=== PATIENT | male | born 1950 | race Caucasian/White ===

== ENCOUNTER → 2024-04-14 10:00 | Outpatient (REF) | payer MEDICARE, OTHER, SELFPAY | LOC: RCS 10:00 | PROVIDERS: ATTENDING PHYSICIAN Internal Medicine Cardiovascular Disease; FAMILY PHYSICIAN Family Medicine | DX: I35.0 Nonrheumatic aortic (valve) stenosis (principal) | CPT/HCPCS: 93306 ==

== ENCOUNTER → 2024-05-16 07:03 | Outpatient (REF) | payer MEDICARE, OTHER, SELFPAY ==
[2024-05-16 08:52] LABS: ALT (SGPT) 26 U/L (0-50); AST (SGOT) 25 U/L (17-59); Albumin 4.2 g/dl (3.5-5.0); Alkaline Phosphatase 76 U/L (38-126); Blood Urea Nitrogen 21 mg/dl (9-20); Calcium 9.6 mg/dl (8.4-10.2); Carbon Dioxide 28 mmol/L (22-30); Chloride 105 mmol/L (98-107); Glucose 108 mg/dl (70-99); HDL Cholesterol 88 mg/dl; LDL Cholesterol, Calculated 59 mg/dl; Sodium 139 mmol/L (135-145); Total Bilirubin 0.6 mg/dl (0.2-1.3); Total Cholesterol 158 mg/dl (50-199); Total Protein 6.4 g/dl (6.3-8.2); Triglyceride 58 mg/dl (10-149); Very Low Density Lipoprotein 11 mg/dl (0-30); eGFR > 60.00
[2024-05-16 09:19] LABS: PSA, Total - Screen 1.75 ng/ml (0.0-4.0)
== END ==
LOC: REG 07:03
PROVIDERS: ATTENDING PHYSICIAN Family Medicine
DX: I10 Essential (primary) hypertension (principal); E78.5 Hyperlipidemia, unspecified; R35.0 Frequency of micturition; Z12.5 Encounter for screening for malignant neoplasm of prostate
CPT/HCPCS: 36415; 80053; 80061; G0103

== ENCOUNTER → 2024-06-11 06:45 | Outpatient (REF) | payer MEDICARE, OTHER, SELFPAY ==
[2024-06-11 07:45] LABS: % Basophils 0.4 % (0-2); % Eosinophils 1.6 % (0-6); % Immature Granulocytes 0.2 % (0-0.5); % Lymphocytes 26.4 % (20.5-51.1); % Monocytes 10.3 % (1.7-9.3); % Neutrophils 61.1 % (42.2-75.2); Absolute Eosinophils 0.1 10^3/uL (0-0.7); Absolute Lymphocytes 1.4 10^3/uL (1.2-3.4); Absolute Monocytes 0.5 10^3/uL (0.1-0.6); Absolute Neutrophils 3.2 10^3/uL (1.4-6.5); Hematocrit 39.1 % (39.0-52.0); Hemoglobin 13.3 g/dL (13.0-18.0); Mean Corpuscular Volume 91.1 fL (80.0-94.0); Mean Platelet Volume 10.8 fL (7.4-10.4); Nucleated Red Blood Cells % 0 % (-); Platelet Count 198 10^3/uL (130-400); Red Blood Cell Count 4.29 10^6/uL (4.70-6.10); Red Cell Dist. Width 13.3 % (11.5-14.5); White Blood Cell Count 5.2 10^3/uL (4.8-10.8)
[2024-06-11 08:10] LABS: ALT (SGPT) 25 U/L (0-50); AST (SGOT) 26 U/L (17-59); Alkaline Phosphatase 67 U/L (38-126); Blood Urea Nitrogen 20 mg/dl (9-20); Calcium 9.5 mg/dl (8.4-10.2); Carbon Dioxide 29 mmol/L (22-30); Chloride 108 mmol/L (98-107); Glucose 107 mg/dl (70-99); HDL Cholesterol 82 mg/dl; LDL Cholesterol, Calculated 60 mg/dl; Potassium 4.9 mmol/L (3.5-5.1); Sodium 142 mmol/L (135-145); Total Bilirubin 0.6 mg/dl (0.2-1.3); Total Cholesterol 151 mg/dl (50-199); Total Protein 6.1 g/dl (6.3-8.2); Triglyceride 47 mg/dl (10-149); Very Low Density Lipoprotein 9 mg/dl (0-30); eGFR > 60.00
[2024-06-11 08:52] LABS: PSA, Total - Screen 1.82 ng/ml (0.0-4.0); TSH 3.14 uIU/ml (0.47-4.68)
[2024-06-11 10:53] LABS: Vitamin B12 890 pg/ml (239-931)
[2024-06-11 11:41] LABS: Glycohemoglobin (HgbA1c) 5.8 % (4.0-5.6)
== END ==
LOC: REG 06:45
PROVIDERS: ATTENDING PHYSICIAN Family Medicine; FAMILY PHYSICIAN Internal Medicine Cardiovascular Disease
DX: D64.9 Anemia, unspecified (principal); E03.9 Hypothyroidism, unspecified; I10 Essential (primary) hypertension; E78.5 Hyperlipidemia, unspecified; R53.83 Other fatigue; E11.9 Type 2 diabetes mellitus without complications; R35.0 Frequency of micturition; I25.119 Atherosclerotic heart disease of native coronary artery with unspecified angina pectoris
CPT/HCPCS: 36415; 80053; 80061; 82607; 83036; 84443; 85025; G0103

== ENCOUNTER → 2024-08-06 06:53 | Outpatient (REF) | payer MEDICARE, OTHER, SELFPAY | LOC: RAD 06:53 | PROVIDERS: ATTENDING PHYSICIAN Internal Medicine Cardiovascular Disease; FAMILY PHYSICIAN Family Medicine | DX: I73.9 Peripheral vascular disease, unspecified (principal) | CPT/HCPCS: 93922; 93925 ==

== ENCOUNTER → 2024-11-18 07:45 | Outpatient (REF) | payer MEDICARE, OTHER, SELFPAY ==
[2024-11-18 09:12] LABS: Hematocrit 38.9 % (39.0-52.0); Hemoglobin 13.5 g/dL (13.0-18.0); Mean Corp Hgb Conc. 34.7 g/dL (33.0-37.0); Mean Corpuscular Hgb 30.7 pg (27.0-31.0); Mean Corpuscular Volume 88.4 fL (80.0-94.0); Red Cell Dist. Width 13.4 % (11.5-14.5); White Blood Cell Count 5.2 10^3/uL (4.8-10.8)
[2024-11-18 09:13] LABS: % Basophils 0.4 % (0-2); % Eosinophils 2.9 % (0-6); % Immature Granulocytes 0.2 % (0-0.5); % Lymphocytes 23.2 % (20.5-51.1); % Neutrophils 62.3 % (42.2-75.2); Absolute Eosinophils 0.2 10^3/uL (0-0.7); Absolute Lymphocytes 1.2 10^3/uL (1.2-3.4); Absolute Monocytes 0.6 10^3/uL (0.1-0.6); Absolute Neutrophils 3.2 10^3/uL (1.4-6.5); Nucleated Red Blood Cells % 0 % (-)
[2024-11-18 09:34] LABS: Mean Platelet Volume 10.5 fL (7.4-10.4); Platelet Count 189 10^3/uL (130-400)
[2024-11-18 09:42] LABS: Urine Albumin Negative (Neg - Trace); Urine Bilirubin Negative (Negative); Urine Character Clear (Clear); Urine Color Yellow; Urine Glucose Negative (Negative); Urine Ketone Negative (Negative); Urine Leukocyte Negative (Negative); Urine Nitrite Negative (Negative); Urine Occult Blood Negative (Negative); Urine Specific Gravity 1.015 (<1.030); Urine Urobilinogen Negative (Neg - 1+)
[2024-11-18 09:48] LABS: ALT (SGPT) 39 U/L (0-50); AST (SGOT) 33 U/L (17-59); Albumin 4.4 g/dl (3.5-5.0); Alkaline Phosphatase 66 U/L (38-126); Blood Urea Nitrogen 24 mg/dl (9-20); Calcium 9.3 mg/dl (8.4-10.2); Carbon Dioxide 29 mmol/L (22-30); Chloride 103 mmol/L (98-107); Glucose 107 mg/dl (70-99); HDL Cholesterol 102 mg/dl; LDL Cholesterol, Calculated 57 mg/dl; Potassium 4.3 mmol/L (3.5-5.1); Sodium 138 mmol/L (135-145); Total Bilirubin 0.5 mg/dl (0.2-1.3); Total Cholesterol 170 mg/dl (50-199); Total Protein 6.7 g/dl (6.3-8.2); Triglyceride 55 mg/dl (10-149); Very Low Density Lipoprotein 11 mg/dl (0-30); eGFR > 60.00
[2024-11-18 10:08] LABS: TSH 3.42 uIU/ml (0.47-4.68)
[2024-11-18 10:12] LABS: Ferritin 46.3 ng/ml (17.9-464.0)
[2024-11-18 10:48] LABS: PSA, Total - Diagnostic 2.27 ng/ml (0.0-4.0)
== END ==
LOC: REG 07:45
PROVIDERS: ATTENDING PHYSICIAN Family Medicine
DX: I10 Essential (primary) hypertension (principal); E78.00 Pure hypercholesterolemia, unspecified; E03.9 Hypothyroidism, unspecified; R53.83 Other fatigue; N39.0 Urinary tract infection, site not specified; R35.0 Frequency of micturition; J20.8 Acute bronchitis due to other specified organisms; R79.89 Other specified abnormal findings of blood chemistry
CPT/HCPCS: 36415; 71046; 80053; 80061; 81003; 82728; 84153; 84443; 85025

== ENCOUNTER → 2025-04-21 08:20 | Outpatient (REF) | payer MEDICARE, OTHER, SELFPAY | LOC: RAD 08:20 | PROVIDERS: ATTENDING PHYSICIAN Student in an Organized Health Care Education/Training Program; FAMILY PHYSICIAN Family Medicine | DX: I25.10 Atherosclerotic heart disease of native coronary artery without angina pectoris (principal) | CPT/HCPCS: 93880 ==

== ENCOUNTER 2025-06-01 23:10 | Inpatient (IN) | payer MEDICARE, OTHER, SELFPAY ==
[2025-06-01 18:49] VITALS: BP 164/77
[2025-06-01 19:08] LABS: Hematocrit 37.2 % (39.0-52.0); Hemoglobin 12.9 g/dL (13.0-18.0); Mean Corp Hgb Conc. 34.7 g/dL (33.0-37.0); Mean Corpuscular Volume 89.4 fL (80.0-94.0); Nucleated Red Blood Cells % 0 % (-); Platelet Count 178 10^3/uL (130-400); Red Cell Dist. Width 14.0 % (11.5-14.5)
[2025-06-01 19:29] LABS: ALT (SGPT) 28 U/L (0-50); AST (SGOT) 23 U/L (17-59); Albumin 4.4 g/dl (3.5-5.0); Alkaline Phosphatase 65 U/L (38-126); Blood Urea Nitrogen 23 mg/dl (9-20); Calcium 9.4 mg/dl (8.4-10.2); Carbon Dioxide 25 mmol/L (22-30); Chloride 107 mmol/L (98-107); Glucose 103 mg/dl (70-99); Potassium 3.8 mmol/L (3.5-5.1); Sodium 139 mmol/L (135-145); Total Protein 6.7 g/dl (6.3-8.2); eGFR > 60.00
[2025-06-01 19:32] LABS: Troponin I < 0.012 ng/ml
--- NOTE | 2025-06-01 22:16 | ED.GENMED ---
History of Present Illness
<Haroldo Matthews DO - Last Filed: 06/01/25 22:20>
General
Chief Complaint: Chest Pain
Time Seen by Provider: 06/01/25 21:02
<Linda Shirley MD, Resident - Last Filed: 06/01/25 23:20>
General
Source: patient and spouse
Exam Limitations: none
Nursing documentation reviewed up to this point in time: agreed with
History of Present Illness
History of Present Illness:
Mr. Perry is 75yoM with a significant history of CAD (s/p 9 stents) who is presenting with angina at rest for 2 hours. The pain was retrosternal and radiating to the left neck. The pain was 2/10 and has resolved.
The patient reports the angina feels distinct from her prior episodes, which were during exertion and had associated symptoms, such as dizziness. He took 2 sublingual nitroglycerin tablets, which provided no relief. He thinks his 1.5 glasses of rum
punch contributed to his angina. He denied nausea/vomiting, dyspnea, and diaphoresis.
He had an NH in 2001 and has since had 9 stents. He has had stents in his RCA and is concerned stenosis of his LAD is causing his angina, due to recent imaging demonstrating LAD stenosis and the different nature of this angina compared to previous
episodes.
He received a carotid ultrasound a few weeks ago that demonstrated 50-70% stenosis of his L carotid artery. Vascular surgery is monitoring. He obtained the carotid ultrasound preventatively/asymptomatically due to his brother having a 90% stenosis
and revascularization surgery.
Recent echocardiogram reveals aortic valvular stenosis.
Past History
<Haroldo Matthews DO - Last Filed: 06/01/25 22:20>
Past History
ED Past Medical History: CAD, HTN, Hypercholesterolemia (Hypertriglyceridemia ), NH and Psychiatric (Depression )
ED Past Surgical History: Cardiac (Angioplasty with stenting, Stents X 7) and Other (The patient has been a bone marrow donor )
Social History
Tobacco: Non-smoker
Alcohol: Daily (Rum 2 glasses or mixed drinks)
Personal:
Living: with family
Employment: Employed
Family History
Family History: Diabetes, Hypertension and CAD; Negative Asthma or Cancer
Review of Systems
<Linda Shirley MD, Resident - Last Filed: 06/01/25 23:20>
Review of Systems
All Other Systems: ROS reviewed and negative except as documented in HPI and ROS
Phy Exam
<Linda Shirley MD, Resident - Last Filed: 06/01/25 23:20>
General Physical Exam
General Presentation: well appearing and no apparent distress
General age: appears stated age
General Skin: warm and dry
General Habitus: normal
General Mental: alert
General Hydration: appears well hydrated
Cardiovascular Exam
Cardiovascular Exam: no edema and systolic murmur
Systolic Murmur: 2/6
Pulmonary Exam
Pulmonary Exam: lungs clear and no respiratory distress
Gastrointestinal Exam
Gastrointestinal Exam: normal bowel sounds and non tender
Neurological Exam
Neurological Exam: alert
Skin Exam
Skin Exam: normal color and warm/dry
Psychiatric Exam
Psychiatric Exam: normal mood/affect
Scores
<Linda Shirley MD, Resident - Last Filed: 06/01/25 23:20>
Heart Score for Chest Pain Patients
STEMI patient?: No
History: Highly Suspicious
ECG: Normal (afib)
Age: >/= 65 years
Risk Factors: >/= 3 Risk Factors or History of CAD
Troponin: </= Normal Limit
Heart Score for Chest Pain Patients: 6
Heart Score Risk: 20.3% MACE over next 6 weeks
Course
<Haroldo Matthews, DO - Last Filed: 06/01/25 22:20>
Orders/Labs/Results
Orders:
Orders
06/01/25 18:45
EKG [Electrocardiogram (*1)] Urgent
Reason for Study: Chest Pain
06/01/25 18:46
EKG- Treatment ONCE
06/01/25 19:00
Complete Blood Count/With Diff Urgent
Comprehensive Metabolic Panel Urgent
Troponin I Urgent
06/01/25 22:[address] See Dose Instructions PO NOW STA
Discontinue all Active Warfarin orders?: Yes
Nursing to Place Non Medication Order As Directed
Physician Order: PTT 6 hours after initial start of Heparin infusion
06/01/25 22:31
Heparin 4,000 units IV NOW STA
Nursing to Place Non Medication Order As Directed
Physician Order: PTT 6 hours after initial start of Heparin infusion
06/01/25 22:37
PTT Urgent
Comment: Obtain baseline before beginning heparin infusion if not already collected
06/01/25 22:45
Heparin [id number] Units/250 ml 25,000 units in 250 ml IV PER PROTOCOL
Weight to be used for heparin protocol in kilograms (kg):: 90.1
Protocol:: Cardiac Tx/Acute Coronary
PTT Goal Range to be used:: PTT 73 to 111 seconds
Order type:: Initial
INITIAL Infusion Dose (UNITS/KG/hr) & then follow protocol:: 12 units/kg/hr
Infusion Dose in UNITS/hr & then follow protocol (UNITS/hr):: 1,000
INFUSION RATE in mL/hr & then follow protocol (mL/hr):: 10
PTT less than or equal to 64 seconds:: Increase rate by 200 units/hr (+ 2 mL/hr)
PTT 64.1 to 72.9 seconds:: Increase rate by 100 units/hr (+ 1 mL/hr)
PTT 73 to 111 seconds:: Target Range. No change in rate.
PTT 111.1 to 130.9 seconds:: Decrease rate by 100 units/hr (- 1 mL/hr)
PTT 131 to 199.9 seconds:: HOLD for 1 hr. Then decrease rate by 200 units/hr (- 2 mL/hr)
PTT greater than or equal to 200 seconds:: HOLD for 2 hrs & Notify Provider. Then decrease by 200 units/hr (-
2 mL/hr)
Lab follow-up:: Each change, PTT q6h until 2 consecutive are therapeutic. Then PTT
daily.
06/01/25 23:[address] See Dose Instructions IV DIRECTED
Abnormal Lab Results
06/01/25
19:00
RBC 4.16 L 10^6/uL
(4.70-6.10)
Hgb 12.9 L g/dL
(13.0-18.0)
Hct 37.2 L %
(39.0-52.0)
MPV 10.7 H fL
(7.4-10.4)
Monocytes % 10.3 H %
(1.7-9.3)
BUN 23 H mg/dl
(9-20)
Glucose 103 H mg/dl
(70-99)
06/01/25 19:00
06/01/25 19:00
Vital Signs
Initial and Last Documented VS:
Initial Vital Signs
Temp Pulse Resp BP Pulse Ox
98.3 F 80 18 164/77 97
06/01/25 18:49 06/01/25 18:49 06/01/25 18:49 06/01/25 18:49 06/01/25 18:49
Last Documented Vital Signs
Temp Pulse Resp BP Pulse Ox
98.3 F 67 11 164/77 98
06/01/25 18:49 06/01/25 21:15 06/01/25 21:15 06/01/25 18:49 06/01/25 22:16
<Linda Shirley MD, Resident - Last Filed: 06/01/25 23:20>
Orders/Labs/Results
Orders:
Orders
06/01/25 18:45
EKG [Electrocardiogram (*1)] Urgent
Reason for Study: Chest Pain
06/01/25 18:46
EKG- Treatment ONCE
06/01/25 19:00
Complete Blood Count/With Diff Urgent
Comprehensive Metabolic Panel Urgent
Troponin I Urgent
06/01/25 22:[address] See Dose Instructions PO NOW STA
Discontinue all Active Warfarin orders?: Yes
Nursing to Place Non Medication Order As Directed
Physician Order: PTT 6 hours after initial start of Heparin infusion
06/01/25 22:31
Heparin 4,000 units IV NOW STA
Nursing to Place Non Medication Order As Directed
Physician Order: PTT 6 hours after initial start of Heparin infusion
06/01/25 22:37
PTT Urgent
Comment: Obtain baseline before beginning heparin infusion if not already collected
06/01/25 22:45
Heparin [id number] Units/250 ml 25,000 units in 250 ml IV PER PROTOCOL
Weight to be used for heparin protocol in kilograms (kg):: 90.1
Protocol:: Cardiac Tx/Acute Coronary
PTT Goal Range to be used:: PTT 73 to 111 seconds
Order type:: Initial
INITIAL Infusion Dose (UNITS/KG/hr) & then follow protocol:: 12 units/kg/hr
Infusion Dose in UNITS/hr & then follow protocol (UNITS/hr):: 1,000
INFUSION RATE in mL/hr & then follow protocol (mL/hr):: 10
PTT less than or equal to 64 seconds:: Increase rate by 200 units/hr (+ 2 mL/hr)
PTT 64.1 to 72.9 seconds:: Increase rate by 100 units/hr (+ 1 mL/hr)
PTT 73 to 111 seconds:: Target Range. No change in rate.
PTT 111.1 to 130.9 seconds:: Decrease rate by 100 units/hr (- 1 mL/hr)
PTT 131 to 199.9 seconds:: HOLD for 1 hr. Then decrease rate by 200 units/hr (- 2 mL/hr)
PTT greater than or equal to 200 seconds:: HOLD for 2 hrs & Notify Provider. Then decrease by 200 units/hr (-
2 mL/hr)
Lab follow-up:: Each change, PTT q6h until 2 consecutive are therapeutic. Then PTT
daily.
06/01/25 23:[address] See Dose Instructions IV DIRECTED
Abnormal Lab Results
06/01/25
19:00
RBC 4.16 L 10^6/uL
(4.70-6.10)
Hgb 12.9 L g/dL
(13.0-18.0)
Hct 37.2 L %
(39.0-52.0)
MPV 10.7 H fL
(7.4-10.4)
Monocytes % 10.3 H %
(1.7-9.3)
BUN 23 H mg/dl
(9-20)
Glucose 103 H mg/dl
(70-99)
06/01/25 19:00
06/01/25 19:00
Vital Signs
Initial and Last Documented VS:
Initial Vital Signs
Temp Pulse Resp BP Pulse Ox
98.3 F 80 18 164/77 97
06/01/25 18:49 06/01/25 18:49 06/01/25 18:49 06/01/25 18:49 06/01/25 18:49
Last Documented Vital Signs
Temp Pulse Resp BP Pulse Ox
98.3 F 67 11 164/77 98
06/01/25 18:49 06/01/25 21:15 06/01/25 21:15 06/01/25 18:49 06/01/25 22:16
Banking Pin Adjuster consulted with Physician
Banking Pin Adjuster consulted with physician?: Yes
Name of Physician Consulted: Warren Aquino
<Linda Shirley MD, Resident - Last Filed: 06/01/25 23:20>
MDM/Problems Addressed
MDM/Problems Addressed:
Mr. Perry is a 75yoM with a significant history of CAD presenting with angina at rest and afib.
Cardiac enzymes non-elevated.
EKG demonstrates afib. He is on antiplatelet therapy, but not anticoagulation, so heparin was started.
Admit to inpatient medicine for cardiology consult and trending cardiac enzymes.
Chronic conditions affecting care: HTN and CAD
Acute Exacerbation and/or Progression of Chronic Illness: CAD
<Haroldo Matthews, DO - Last Filed: 06/01/25 22:20>
*Pulse Oximetry
SaO2: 98
Oxygen Mode of Delivery: Room air
<Linda Shirley MD, Resident - Last Filed: 06/01/25 23:20>
*Pulse Oximetry
Patient hypoxic: no
*Critical Care Note
Total Time (30-74mins, 75-104mins- exclusive of procedures): Not Applicable
ED Attending Note
<Haroldo Matthews, DO - Last Filed: 06/01/25 22:20>
ED Attending Note
Patient seen and examined by attending physician: Yes
I performed a history and physical exam of patient and discussed management with resident, I reviewed resident's note and agree with documented findings and plan of care.: Yes
ED Attending Note:
I have seen and evaluated the patient with a [id number] encounter. I have spoken to the resident and involved in the medical history, the physical exam, medical decision making.
Evaluation and management service: agree unless noted differently below.
Results interpretation: agree unless noted differently below.
Focused HPI: 75-year-old male presenting with improving central chest discomfort. Patient states he noted it at rest. Patient was concerned because this is very similar presentation to his prior angina which required cardiac stents. He states he
has 9 cardiac stents. Patient took nitroglycerin with minimal relief. On arrival, patient feeling somewhat better. Patient was concerned because this is the first time he developed this pain at rest
Patient also states has a history of aortic stenosis
Physical exam: Sitting in bed comfortably. Irregular rhythm. Heart murmur noted
Medical Decision Making: Given his significant cardiac history, concern for unstable angina and concern for new onset A-fib, will start heparin and admit
-
Portions of this chart may have been created with voice recognition software.� Occasional wrong word or��sound alike� substitutions may have occurred due to the inherent limitations of voice recognition software.
Discharge Plan
Departure
Patient Disposition: Admit
Date of Disposition: 06/01/25
Time of Disposition: 22:19
Admit to: Telemetry
Presentation/result/management discussed w/ accepting MD/DO: Hospitalist
Discharge Problem:
Unstable angina, New onset atrial flutter
Prescriptions:
No Action
desvenlafaxine succinate [Pristiq] 100 MG tablet extended release 24 hr
200 mg PO DAILY
methylphenidate HCl [Concerta] 36 MG tablet extended release 24hr
36 mg PO DAILY
atorvastatin 40 MG tablet
40 mg PO DAILY
aspirin 81 MG tablet,delayed release (DR/EC)
81 mg PO DAILY
tamsulosin 0.4 MG capsule
0.4 mg PO DAILY
clopidogrel 75 MG tablet
75 mg PO DAILY Qty: 90 3RF
nitroglycerin 0.4 MG tablet, sublingual
0.4 mg sublingual [id number] PRN (Reason: chest pain) Qty: 25 2RF
bupropion HCl [Wellbutrin XL] 300 mg Tablet Extended Release 24 Hr
300 mg PO DAILY
diltiazem HCl 180 mg Capsule,Extended Release 24 Hr
180 mg PO DAILY
losartan 50 mg Tablet
50 mg PO BID
isosorbide mononitrate 60 mg Tablet Extended Release 24 Hr
60 mg PO DAILY
hydrochlorothiazide 12.5 mg Capsule
12.5 mg PO DAILY
omega 8-ypt-whl-fish oil [Fish Oil] 1,200 (144-216) mg Capsule
1 cap PO DAILY
Referrals:
Ashvin Tang DO [Family Provider, Family Practice]
Discharge Date and Time
Print Language: GUATEMALAN
[2025-06-01 22:25] VITALS: BMI 27.7
--- NOTE | 2025-06-01 23:07 | HPS.HSE ---
Addendum entered and electronically signed by Warren Aquino DO 06/01/25 23:32:
Patient seen and examined independently. Agree with findings and plan as set forth by Maria Elena Marvin PA-C.
Patient is a 75y M with PMH significant for ASCVD and multiple prior stents who presents to ED complaining of chest pain. Patient states that he had been feeling very well since his most recent cath. About one week ago he started to have
substernal chest tightness with activity / exertion. Patient notes that he had only been taking his Imdur once daily as he had been feeling well. When his discomfort started, he returned to BID dosing.
This evening, he noted the same chest discomfort while at rest / watching TV. he denies any associated SOB, diaphoresis, nausea, lightheadedness, etc.
Pain lasted for several hours before resolving spontaneously. He is currently resting in the ED without chest pain.
On evaluation in the ED, patient was noted to be in A-Flutter with controlled ventricular response. No prior h/o A-Fib / Flutter.
Ass:
New Atrial Flutter
Chest Pain / Unstable Angina
ASCVD
Benign Hypertension
Moderate Aortic Stenosis
BPH
Depression / ADHD
Plan:
Admit for further evaluation and treatment.
EKG with new A-Flutter with ventricular rate in the 60s and non-specific T wave changes in the lateral / precordial leads.
Initial troponin is undetectable.
Started on IV heparin for A-Flutter.
Follow serial troponin.
Follow for any new / recurrent symptoms.
Cardiology evaluation for additional recommendations.
Continue Imdur BID, ASA, statin, etc.
Continue usual Cardizem dose and follow heart rates.
Original Note:
Family Physician
-
Family Physician: Ashvin Tang
Chief Complaint
-
Chest Tightness
History of Present Illness
Patient is a 75 y/o male with extensive coronary artery disease with multiple stents, hypertension, hyperlipidemia, BPH and Depression who presents with chest tightness. Patient reports chest tightness with activity that has been occurring
intermittently for the past week. Today patient developed chest tightness at rest while sitting watching TV. He reports prior history of angina but states he has never had symptoms at rest. He denies any diaphoresis, dizziness/lightheadedness,
shortness of breath or palpitations.
Medical History
Past Medical History
Past Medical History: Reports Other
Additional Past Medical History:
Coronary Artery Disease s/p Multiple Stents, most recent 2020
Moderate Aortic Stenosis
Essential Hypertension
Hyperlipidemia
BPH
Depression
Restless Leg Syndrome
Past Surgical History: Reports Other
Additional Past Surgical History:
Cardiac Stents x 9
Right Rotator Cuff Repair
Social History
Tobacco: Non-smoker
Alcohol: Occasional
Family History
Family History: Not pertinent
Allergies / Home Medications
Allergies reflects when Allergies were last updated in [employer].
Home Medications with original date entered in [employer]
Allergy/Medication List:
Allergies
Allergy/AdvReac Type Severity Reaction Status Date / Time
pollen extracts Allergy swollen Verified 06/01/25 18:49
sinus,
runny nose
- seasonal
Home Medications
desvenlafaxine succinate 100 mg tablet,extended release 24 hr (Pristiq) 200 mg PO DAILY Mental health 11/30/12
methylphenidate HCl 36 mg tablet,extended release 24 hr (Concerta) 36 mg PO DAILY Mental health 09/02/17
aspirin 81 mg tablet,delayed release 81 mg PO DAILY Blood clot prevention/tx 07/04/20
atorvastatin 40 mg tablet 40 mg PO DAILY High cholesterol 07/04/20
tamsulosin 0.4 mg capsule 0.4 mg PO DAILY Urinary issue 07/04/20
clopidogrel 75 mg tablet 75 mg PO DAILY #90 tabs 07/05/20
nitroglycerin 0.4 mg sublingual tablet 0.4 mg sublingual [id number] PRN chest pain #25 tabs 11/22/21
bupropion HCl 300 mg 24 hr tablet, extended release (Wellbutrin XL) 300 mg PO DAILY 01/25/23
diltiazem HCl 180 mg capsule,24 hr,extended release 180 mg PO DAILY 06/01/25
hydrochlorothiazide 12.5 mg capsule 12.5 mg PO DAILY 06/01/25
isosorbide mononitrate 60 mg tablet,extended release 24 hr 60 mg PO DAILY 06/01/25
losartan 50 mg tablet 50 mg PO BID 06/01/25
omega 2-uwl-tlw-fish oil 1,200 mg (144 mg-216 mg) capsule (Fish Oil) 1 cap PO DAILY 06/01/25
Review of Systems
-
History Source: Patient
A 12 point ROS was completed and negative except as noted: Yes
Constitutional: Denies Fever or Chills
Respiratory: Denies Cough or Trouble Breathing
Cardiac: Reports Chest Pain; Denies Palpitations
Abdomen/GI: Denies Abdominal Pain, Nausea, Vomiting, Diarrhea or Constipated
Physical Exam
Vital Signs
Vital Signs
Temp Pulse Resp BP Pulse Ox
98.3 F 67 11 164/77 98
06/01/25 18:49 06/01/25 21:15 06/01/25 21:15 06/01/25 18:49 06/01/25 22:16
Physical Exam
General: Comfortable and Conversant
HEENT: Anicteric and Moist mucous membranes
Respiratory: Clear and Non Labored Respirations
Cardiac: S1/S2, Regular Rhythm and Murmur (II/ Systolic Murmur)
GI: Soft, Non Tender and Non Distended
Rectal: Deferred by Provider
Musculoskeletal: No Clubbing, No Cyanosis and No Edema
Skin: Warm and Dry
Neuro: Awake, Alert, Oriented and Nonfocal/grossly intact
Psych: Calm
Laboratory Results
-
06/01/25 19:00
06/01/25 19:00
Laboratory Results
Total Bilirubin 0.3 mg/dl (0.2-1.3) 06/01/25 19:00
AST 23 U/L (17-59) 06/01/25 19:00
ALT 28 U/L (0-50) 06/01/25 19:00
Alkaline Phosphatase 65 U/L (38-126) 06/01/25 19:00
Troponin I < 0.012 ng/ml 06/01/25 19:00
ECG: Atrial flutter with variable AV block at 88 bpm
Data Reviewed
-
Medical Tests (Nuc Med, Echo, EKG etc): Other (ECG)
Lab Data: Labs Reviewed by me
Impression/Plan
-
Unstable Angina
-Admit to Telemetry
-Consult Cardiology
-Initial troponin undetectable - Continue to trend
-Continue heparin drip
-Continue aspirin - Hold Plavix
-Patient report he decreased his Imdur from twice a day to daily - Will resume twice a day dosing
-NPO after midnight for possible cardiac cath
Newly Diagnosed Atrial Flutter
-Continue Cardizem for rate control
-Continue heparin drip for anticoagulation
Moderate Aortic Stenosis
-Monitor Daily Weights
Essential Hypertension
-Continue Cardizem and Losartan
-Hold HCTZ
Hyperlipidemia
-Continue atorvastatin
BPH
-Continue Flomax
Depression
-Continue Wellbutrin and Pristiq
DVT proph: Heparin Drip
Code Status: Full Code
[2025-06-01 23:10] LABS: APTT 22.5 Sec (23.4-35.0)
[2025-06-01] MEDS: HEPARIN 4000 UNITS IV (23:23)
[2025-06-01] MEDS: HEPARIN 25000 UNITS/250 ML IV (23:24)
[2025-06-02] VITALS (9 sets, daily range): BP systolic 102–133; BP diastolic 44–74; BMI 28.6
[2025-06-02 00:48] LABS: Troponin I 0.045 ng/ml
--- NOTE | 2025-06-02 03:51 | PTCARENOTE ---
Around 0015, pt admitted to 338-2. Pt walked from stretcher to bed w/ steady gait. Pt aaox3, VSS, and no c/o pain. Heparin gtt running at 10ml/hr. Pt oriented to room, call hart within reach, and plan of care ongoing.
[2025-06-02 05:16] LABS: Hematocrit 37.8 % (39.0-52.0); Hemoglobin 13.0 g/dL (13.0-18.0); Mean Corp Hgb Conc. 34.4 g/dL (33.0-37.0); Mean Corpuscular Volume 89.8 fL (80.0-94.0); Platelet Count 160 10^3/uL (130-400); Red Cell Dist. Width 14.0 % (11.5-14.5)
[2025-06-02 05:25] LABS: INR 0.96; PT 13.1 Sec (11.4-14.6)
[2025-06-02 05:27] LABS: APTT 54.3 Sec (23.4-35.0)
[2025-06-02 05:55] LABS: Blood Urea Nitrogen 21 mg/dl (9-20); Calcium 8.6 mg/dl (8.4-10.2); Carbon Dioxide 26 mmol/L (22-30); Chloride 108 mmol/L (98-107); Estimated Creatinine Clearance 71 ml/min; Glucose 104 mg/dl (70-99); HDL Cholesterol 78 mg/dl; LDL Cholesterol, Calculated 60 mg/dl; Magnesium 2.2 mg/dl (1.6-2.3); Potassium 3.9 mmol/L (3.5-5.1); Sodium 139 mmol/L (135-145); Very Low Density Lipoprotein 11 mg/dl (0-30); eGFR > 60.00
[2025-06-02 06:12] LABS: Troponin I 0.041 ng/ml
[2025-06-02] MEDS: WELLBUTRIN XL (24 hour extended release) 300 MG PO (07:47)
[2025-06-02] MEDS: FLOMAX 0.4 MG PO (07:47)
[2025-06-02] MEDS: ASPIR LOW (ENTERIC COATED) 81 MG PO (07:47)
[2025-06-02] MEDS: CARDIZEM CD 180 MG PO (07:47)
[2025-06-02] MEDS: COZAAR 50 MG PO ×2 (07:47→20:40)
[2025-06-02] MEDS: LIPITOR 40 MG PO (07:48)
[2025-06-02] MEDS: IMDUR (EXTENDED RELEASE) 60 MG PO ×2 (07:48→20:40)
--- NOTE | 2025-06-02 08:41 | CON.CAR ---
Addendum entered and electronically signed by Gulshan Viveros MD 06/02/25 12:21:
Patient seen and examined in collaboration with PGY 2 family development extension specialist; agree with below.
- 75-year-old male with known extensive CAD with 9 stents and aortic stenosis presenting with chest pain; troponin slightly elevated, consistent with an NSTEMI.
- Patient also found to have new onset paroxysmal atrial flutter.
- Focus cardiovascular examination: Irregular rate and rhythm, 3/6 systolic murmur; lungs CTA bilaterally; no edema.
- Assessment/plan:
- CAD/NSTEMI: Case discussed with Interventional Cardiology; patient will undergo cardiac catheterization today to help determine clinical plan (possible AVR/CABG).
- Continue heparin drip.
- Increase atorvastatin.
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
Original Note:
Documented by User: Josey Mott MD, Resident 06/02/25 11:35
Consultation
Consultation Request
Date/Time Consultation Requested: 06/02/2025 00:25
Date/Time Consultation Performed: 06/02/2025 08:30
Requesting Provider: Maria Elena Marvin
Performing Provider: Dr. Mookie Mcmullen
Reason for Consultation: A. flutter
Medical History
-
Chief Complaint: Chest pain, a. flutter
History of Present Illness:
75-year-old male with past medical history of CAD status post 9 stents presented (last one 2020) on plavix and aspirin, moderate aortic stenosis, essential hypertension, hyperlipidemia, BPH, depression, restless leg, PVD, peripheral neuropathy and
irritable bowel syndrome presents to the ED with chest tightness. The patient has had anginal symptoms since his first heart attack in 2000 and is familiar with the symptoms. He was placed on Imdur 60 mg twice daily by his engineering production worker for anginal
symptoms and in the past year he has not had any events until the last few days. Because he had not had any events, he decided to take his Imdur once a day. When he started having chest pain, he decided to take the Imdur twice daily as prescribed
which did not seem to help. Last night, he had chest pain while at rest watching TV. He took 2 nitroglycerin tablets which did not help at which point he came to the ED. Stated pain was 1-2 out of 10, nonradiating, not associated with any
shortness of breath, sweating, dizziness.
In the ED, blood pressure 164/77, heart rate 67, troponin 0.012 which later bumped to 0.045 down trended to 0.041, Cr 0.9. EKG revealed a.flutter with controlled ventricular response. He has no prior history of a.fib/flutter. Last echo 04/14/2024
LVEF 70 to 75%, no regional wall abnormalities, mild LVH, moderate aortic stenosis, mild AR, mild MR. He was started on a heparin ggt, trended troponins, NPO for potential cath. Plavix held.
Of note, patient had prior cardiac cath with prior engineering production worker Dr. Barcenas for anginal symptoms on 01/21/2023 which revealed:
1: Moderate aortic stenosis with mean gradient 22 mmHg
2: Normal overall left ventricular function with EF 58%
3. CAD as described. There is diffuse proximal and mid LAD disease which is not associated with significant angiographic stenosis but is FloWire positive.
4. Based on the angiogram, there is no appropriate target for PCI. We will add Imdur 30 mg daily to his regimen. With history of major depression, we will attempt to avoid a beta-shannon; however, if necessary for angina suppression we will give
a trial of beta-blockade depending on how he does with Imdur. He is a appropriate candidate for CABG if symptoms are not controlled medically.
Past Medical History
Past Medical History: CAD (s/p 9 stents), HTN, Hypercholesterolemia, Valvular Disease (Moderate aortic stenosis) and Other (BPH, depression, restless leg, PVD, peripheral neuropathy, irritable bowel syndrome)
Past Surgical History: Other (Right and left rotator cuff surgery, cardiac stent x 9)
Social History
Tobacco: Non-Smoker
Alcohol: Daily (Glass of wine or other alcoholic beverage nightly)
Drug: None
Personal:
Living: With Family
Family History
Family History: Other (Father CHF, 4 paternal uncles of CHF or [place], 2 brothers both had cardiac bypass. Mother diabetes )
Allergies / Home Medications
Allergy/AdvReac Type Severity Reaction Status Date / Time
pollen extracts Allergy swollen Verified 06/01/25 18:49
sinus,
runny nose
- seasonal
�Medication �Instructions �Recorded �Confirmed �Type
desvenlafaxine succinate 100 mg 200 mg PO DAILY Mental health 11/30/12 06/01/25 History
tablet,extended release 24 hr
(Pristiq)
methylphenidate HCl 36 mg 36 mg PO DAILY Mental health 09/02/17 06/01/25 History
tablet,extended release 24 hr
(Concerta)
aspirin 81 mg tablet,delayed 81 mg PO DAILY Blood clot 07/04/20 06/01/25 History
release prevention/tx
atorvastatin 40 mg tablet 40 mg PO DAILY High cholesterol 07/04/20 06/01/25 History
tamsulosin 0.4 mg capsule 0.4 mg PO DAILY Urinary issue 07/04/20 06/01/25 History
clopidogrel 75 mg tablet 75 mg PO DAILY #90 tabs 07/05/20 06/01/25 Rx
nitroglycerin 0.4 mg sublingual 0.4 mg sublingual [id number] PRN 11/22/21 06/01/25 Rx
tablet chest pain #25 tabs
bupropion HCl 300 mg 24 hr tablet, 300 mg PO DAILY 01/25/23 06/01/25 History
extended release (Wellbutrin XL)
diltiazem HCl 180 mg capsule,24 180 mg PO DAILY 06/01/25 06/01/25 History
hr,extended release
hydrochlorothiazide 12.5 mg capsule 12.5 mg PO DAILY 06/01/25 06/01/25 History
isosorbide mononitrate 60 mg 60 mg PO DAILY 06/01/25 06/01/25 History
tablet,extended release 24 hr
losartan 50 mg tablet 50 mg PO BID 06/01/25 06/01/25 History
omega 3-csv-pse-fish oil 1,200 mg 1 cap PO DAILY 06/01/25 06/01/25 History
(144 mg-216 mg) capsule (Fish Oil)
Review of Systems
-
History Source: Patient
Constitutional: No Symptoms
EENT: No Symptoms
Respiratory: No Symptoms
Cardiac: No Symptoms
Abdomen/GI: No Symptoms
: No Symptoms
Neurological: No Symptoms
Physical Exam
Vital Signs
Temp Pulse Resp BP Pulse Ox
97.9 F 66 14 124/67 99
06/02/25 07:48 06/02/25 07:48 06/02/25 07:48 06/02/25 07:48 06/02/25 07:59
Lab Results
06/02/25 05:04
06/02/25 05:04
Troponin I 0.041 ng/ml H* 06/02/25 05:04
Physical Exam
General: No Apparent Distress and Comfortable
Respiratory: Clear
Cardiac: S1/S2 and Regular Rhythm
GI: Soft, Non Tender, Non Distended and Normal Bowel Sounds
Musculoskeletal: No Cyanosis and No Edema
Skin: Warm and Dry
Neuro: AO x 3
Psych: Calm
Impression / Plan
-
75-year-old male with past medical history of CAD status post 9 stents presented (last one 2020) on plavix and aspirin, moderate aortic stenosis, essential hypertension, hyperlipidemia, BPH, depression, restless leg, PVD, peripheral neuropathy and
irritable bowel syndrome presents with NSTEMI and new onset atrial flutter. Currently asymptomatic.
Primary Air Pollution Compliance Inspector Dr. Barnes
NSTEMI
CAD status post 9 stents
--Anginal symptoms at rest with trop peak 0.045
--EKG a.flutter non-specific T wave abnormalities
--Echo 06/02/25 LVEF 65-70% with possible mid-anteroseptal/inferoseptal hypokinesis. Mod-severe . Mild to mod AR.
--Prior PCI with Dr. Barcenas 01/25/2023 per below
--Discussed with Dr. Barnes and plan for cardiac cath today - Discussed potential future surgical interventions which include TAVR and CABG vs PCI
--Keep NPO
--Cont heparin ggt
--Cont ASA - cont to hold plavix for now
--Cont Imdur 60 BID
Moderate to severe aortic stenosis
--Moderate to severe aortic stenosis; peak/mean gradients 42/27 mmHg, calculated CORRINA 0.8 cm2.
--Discussed potential surgical repair options with patient - eval further after cath
A.flutter
--CV2 score 4 for age, HTN and CAD
--Currently on heparin ggt
--Will require nursing home anticoagulation. Likely plavix and eliquis. Discuss with pt further after cath.
--Appears rate controlled - continue home diltiazem 180qd
Prolonged QTc
--QTc 474
--Monitor and avoid QT prolonging medications
HLD
--LDL 60 - goal <55
--Increase atorva 40 to 80
HTN
--Cont home diltiazem, losartan 50 BID
-HCTZ held in ED. BP stable so can continue to hold.
PVD
--Sees Dr. Devries
--Leg claudication
--04/21/25 L carotid 50-69% and R <50%
--Cont ASA, plavix on hold
Depression
--Pt concerned about missing his desvenlafaxine dose as not on formulary and gets nightmares without it
-- plans to bring it in and he can take it post-cath
--Methylphenidate also for depression
DVT Heparin ggt
Full Code
NPO
Cardiac Cath 01/25/2023 CONCLUSIONS
1: Moderate aortic stenosis with mean gradient 22 mmHg
2: Normal overall left ventricular function with EF 58%
3. CAD as described. There is diffuse proximal and mid LAD disease which is not associated with significant angiographic stenosis but is FloWire positive.
4. Based on the angiogram, there is no appropriate target for PCI. We will add Imdur 30 mg daily to his regimen. With history of major depression, we will attempt to avoid a beta-shannon; however, if necessary for angina suppression we will give
a trial of beta-blockade depending on how he does with Imdur. He is a appropriate candidate for CABG if symptoms are not controlled medically.

Documented by User: Gulshan Viveros MD 06/02/25 12:18
Physical Exam
Physical Exam
Cardiac: Murmur (3/6 systolic RUSB)
Impression / Plan
-
75-year-old male with past medical history of CAD status post 9 stents presented (last one 2020) on plavix and aspirin, moderate aortic stenosis, essential hypertension, hyperlipidemia, BPH, depression, restless leg, PVD, peripheral neuropathy and
irritable bowel syndrome presents with NSTEMI and new onset atrial flutter. Currently asymptomatic.
Primary Air Pollution Compliance Inspector Dr. Barnes
NSTEMI/known CAD status-post 9 stents
--Anginal symptoms at rest with trop peak 0.045
--EKG a.flutter non-specific T wave abnormalities
--Echo 06/02/25 LVEF 65-70% with possible mid-anteroseptal/inferoseptal hypokinesis. Mod-severe . Mild to mod AR.
--Prior PCI with Dr. Barcenas 01/25/2023 per below
--Discussed with Dr. Barnes and plan for cardiac cath today - Discussed potential future surgical interventions which include TAVR and CABG vs PCI
--Keep NPO
--Cont heparin gtt
--Cont ASA - cont to hold plavix for now
--Cont Imdur 60 BID
Moderate to severe aortic stenosis
--Moderate to severe aortic stenosis--progressive; peak/mean gradients 42/27 mmHg, calculated CORRINA 0.8 cm2.
--Discussed potential surgical repair options with patient - eval further after cath
New onset A.flutter
--Denies palpitations
--CV2 score 4 for age, HTN and CAD
--Currently on heparin gtt
--Will require termite control representative anticoagulation. Likely eliquis. Discuss with pt further after cath.
--Appears rate controlled - continue home diltiazem 180 daily
Prolonged QTc
--QTc 474
--Monitor and avoid QT prolonging medications
HLD
--LDL 60 - goal <55
--Increase atorva 40 to 80
HTN
--Cont home diltiazem, losartan 50 BID
--HCTZ held in ED. BP stable so can continue to hold.
PVD
--Sees Dr. Devries
--Leg claudication
--04/21/25 L carotid 50-69% and R <50%
--Cont ASA; plavix on hold
Depression
--Pt concerned about missing his desvenlafaxine dose as not on formulary and gets nightmares without it
-- plans to bring it in and he can take it post-cath
--Methylphenidate also for depression
DVT Heparin gtt
Full Code
NPO
Cardiac Cath 01/25/2023 CONCLUSIONS
1: Moderate aortic stenosis with mean gradient 22 mmHg
2: Normal overall left ventricular function with EF 58%
3. CAD as described. There is diffuse proximal and mid LAD disease which is not associated with significant angiographic stenosis but is FloWire positive.
4. Based on the angiogram, there is no appropriate target for PCI. We will add Imdur 30 mg daily to his regimen. With history of major depression, we will attempt to avoid a beta-shannon; however, if necessary for angina suppression we will give
a trial of beta-blockade depending on how he does with Imdur. He is a appropriate candidate for CABG if symptoms are not controlled medically.
Data Reviewed
-
EKG: Report Reviewed by me (Aflutter at 88 bpm)
Medical Tests (Nuc Med, Echo etc): Image Personally Visualized and interpreted (06/02/25: EF 65-70%, moderate to severe ) and Discussed with Patient
Labs: Labs Reviewed by me
[2025-06-02 11:47] LABS: APTT 70.2 Sec (23.4-35.0)
[2025-06-02 13:43] LABS: ACT-LR - POC 331 Seconds (116-155)
--- NOTE | 2025-06-02 14:41 | W.PN.HOSP.TC ---
Today's Communication/Plan
-
Discharge tomorrow if cleared by cardiology
Assessment / Plan
Assessment / Plan
HPI: 75 y/o male with extensive coronary artery disease with multiple stents, hypertension, hyperlipidemia, BPH and Depression who presents with chest tightness. Patient reports chest tightness with activity that has been occurring intermittently
for the past week. Today patient developed chest tightness at rest while sitting watching TV. He reports prior history of angina but states he has never had symptoms at rest. He denies any diaphoresis, dizziness/lightheadedness, shortness of breath
or palpitations.
Unstable Angina
- Appreciate cardiology input, status post cardiac catheterization 06/02 showing multivessel CAD, and moderate aortic stenosis
- Cardiology recommends outpatient follow-up with CT surgery for CABG/AVR
- Change IV heparin drip to Eliquis, continue Plavix, discontinue aspirin
- Atorvastatin increased to 80 mg at bedtime, continue Imdur twice a day
- Discharge tomorrow if cleared by cardiology
Newly Diagnosed Atrial Flutter
-Continue Cardizem for rate control
-Change IV heparin drip to Eliquis
Moderate Aortic Stenosis
-Outpatient follow-up with CT surgery for CABG/AVR
Essential Hypertension
-Continue Cardizem and Losartan
-Hold HCTZ
Hyperlipidemia
-Atorvastatin increased by cardiology to 80 mg at bedtime
BPH
-Continue Flomax
Depression
-Continue Wellbutrin and Pristiq
DVT proph: Eliquis
Code Status: Full Code
Total time spent to see the patient on the floor, examine the patient, review data and lab results, discuss treatment plan with patient, nursing staff around 39 minutes.
Physical Exam
General: No acute distress
HEENT: Normocephalic, Atraumatic, EOMI, MMM
Respiratory: Clear to Auscultation bilaterally
Cardiac: Normal S1/S2, Regular Rate and Rhythm, +murmur
GI: Soft, Nontender, Nondistended, Normal Bowel Sounds
Extremities: No Clubbing, Cyanosis, or Edema
Neuro: Nonfocal/Grossly Intact
Anticipated Discharge: Within 24 hours
Subjective/Interval History
-
Date of Service: June 02, 2025
Patient seen and examined in the morning prior to his cardiac catheterization. He did not have any recurrence of his chest pain. Denies palpitations, denies dyspnea with activity. No fever, no vomiting.
Objective Data
-
Labs:
Laboratory Results
06/01/25 06/02/25 06/02/25
22:37 05:04 11:35
WBC 5.5
Hgb 13.0
Hct 37.8 L
Plt Count 160
PT 13.1
INR 0.96
APTT 22.5 L 54.3 H Pending
Sodium 139
Potassium 3.9
Chloride 108 H
Carbon Dioxide 26
BUN 21 H
Creatinine 0.9
Glucose 104 H
Calcium 8.6
Vital Signs:
Vital Signs
Temp Pulse Resp BP Pulse Ox
97.9 F 66 14 124/67 99
06/02/25 07:48 06/02/25 07:48 06/02/25 07:48 06/02/25 07:48 06/02/25 07:59
--- NOTE | 2025-06-02 16:41 | W.PN.UPDATE ---
Update Note
Progress Note Update
Brief post cath update note, full procedure note to follow.
Right and left heart cath performed via right radial artery and right femoral vein access with following findings:
1) stable disease in the RCA and LCx with ostial LAD stenosis noted which was positive by IVUS criteria (4.5 mm2 MLA). There was also progression of a mid-LAD stenosis to 60-70% (40% on priot angiography). Neither of these lesions are clear
explanations for his NSTEMI, revascularization deferred as patient may ultimately benefit from CABG/AVR in near future.
2) Valve interrogation consistent with moderate
Plan:
1) resume heparin tonight, will likely transition to OAC tomorrow
2) CT surgery consult for consideration of CABG/AVR, likely as outpatient given normal EF and resolved symtoms
--- NOTE | 2025-06-02 16:58 | CM ---
Alert awake oriented patient who
lives with his Mary Kate who lives in a 2 story home with 0 step to enter and 13 steps to bed and bathroom. He is independent in driving and in all activities of daily living.He was offered VN he declined need.Pt given Eliquis coupon as requested by
.Pt will be discharge and set up for cardiac surgery.
No VN hx / No SNF history
Pharmacy [facility]
PCP DR Tang
PLAN Home Declined VN
[2025-06-02] MEDS: LIPITOR 80 MG PO (17:04)
[2025-06-02] MEDS: ELIQUIS 5 MG PO (20:40)
[2025-06-03 02:58] VITALS: BP 104/58
[2025-06-03 05:47] LABS: Hematocrit 34.3 % (39.0-52.0); Hemoglobin 11.6 g/dL (13.0-18.0); Mean Corp Hgb Conc. 33.8 g/dL (33.0-37.0); Mean Corpuscular Volume 91.0 fL (80.0-94.0); Platelet Count 149 10^3/uL (130-400); Red Cell Dist. Width 14.0 % (11.5-14.5)
[2025-06-03 06:00] VITALS: BMI 28.8
[2025-06-03 06:16] LABS: Blood Urea Nitrogen 23 mg/dl (9-20); Calcium 9.0 mg/dl (8.4-10.2); Carbon Dioxide 27 mmol/L (22-30); Chloride 108 mmol/L (98-107); Estimated Creatinine Clearance 80 ml/min; Glucose 105 mg/dl (70-99); Potassium 4.3 mmol/L (3.5-5.1); Sodium 137 mmol/L (135-145); eGFR > 60.00
[2025-06-03 07:44] VITALS: BP 124/62
[2025-06-03] MEDS: CARDIZEM CD 180 MG PO (08:04)
[2025-06-03] MEDS: WELLBUTRIN XL (24 hour extended release) 300 MG PO (08:05)
[2025-06-03] MEDS: FLOMAX 0.4 MG PO (08:05)
[2025-06-03] MEDS: IMDUR (EXTENDED RELEASE) 60 MG PO (08:05)
[2025-06-03] MEDS: PLAVIX 75 MG PO (08:05)
[2025-06-03] MEDS: COZAAR 50 MG PO (08:05)
[2025-06-03] MEDS: ELIQUIS 5 MG PO (08:05)
[2025-06-03] MEDS: NON-FORMULARY ITEM PO ×2 (08:44→09:48)
[2025-06-03] MEDS: NON-FORMULARY ITEM 200 MG PO (08:51)
--- NOTE | 2025-06-03 09:14 | W.PN.HOSP.TC ---
Today's Communication/Plan
-
Discharge today
Assessment / Plan
Assessment / Plan
HPI: 75 y/o male with extensive coronary artery disease with multiple stents, hypertension, hyperlipidemia, BPH and Depression who presents with chest tightness. Patient reports chest tightness with activity that has been occurring intermittently
for the past week. Today patient developed chest tightness at rest while sitting watching TV. He reports prior history of angina but states he has never had symptoms at rest. He denies any diaphoresis, dizziness/lightheadedness, shortness of breath
or palpitations.
Unstable Angina
- Appreciate cardiology input, status post cardiac catheterization 06/02 showing multivessel CAD, and moderate aortic stenosis
- Cardiology recommends outpatient follow-up with CT surgery for CABG/AVR
- Status post IV heparin drip, started on Eliquis, continue Plavix, discontinue aspirin
- Atorvastatin increased to 80 mg at bedtime, continue Imdur twice a day
- Medically stable for discharge today, follow-up with CT surgery and cardiology in the office as scheduled, and his primary care provider in 1 week
Newly Diagnosed Atrial Flutter
-Continue Cardizem for rate control
- Started on Eliquis
Moderate Aortic Stenosis
-Outpatient follow-up with CT surgery for CABG/AVR
Essential Hypertension
-Continue Cardizem and Losartan
-Resume HCTZ
Hyperlipidemia
-Atorvastatin increased by cardiology to 80 mg at bedtime
BPH
-Continue Flomax
Depression
-Continue Wellbutrin and Pristiq
DVT proph: Eliquis
Code Status: Full Code
Physical Exam
General: No acute distress
HEENT: Normocephalic, Atraumatic, EOMI, MMM
Respiratory: Clear to Auscultation bilaterally
Cardiac: Normal S1/S2, Regular Rate and Rhythm, +murmur
GI: Soft, Nontender, Nondistended, Normal Bowel Sounds
Extremities: No Clubbing, Cyanosis, or Edema
Neuro: Nonfocal/Grossly Intact
Anticipated Discharge: Today
Subjective/Interval History
-
Date of Service: June 03, 2025
No recurrence of chest pain. No shortness of breath. No fever, no vomiting.
Objective Data
-
Labs:
Laboratory Results
06/03/25
05:17
WBC 5.7
Hgb 11.6 L
Hct 34.3 L
Plt Count 149
Sodium 137
Potassium 4.3
Chloride 108 H
Carbon Dioxide 27
BUN 23 H
Creatinine 0.8
Glucose 105 H
Calcium 9.0
Vital Signs:
Vital Signs
Temp Pulse Resp BP Pulse Ox
98.3 F 58 14 124/62 97
06/03/25 07:44 06/03/25 08:04 06/03/25 07:44 06/03/25 08:04 06/03/25 07:44
I&O
06/02/25 06/03/25 06/04/25
06:59 06:59 06:59
Intake Total 1440 / 1440
Balance 1440 / 1440
--- NOTE | 2025-06-03 09:49 | PTCARENOTE ---
pt had prescription bottle with assorted pills on his blanket, including Pristiq 200mg that was not on MAR, but on patient home med list. Explained to pt that he cannot take home meds without RN knowing, and med was sent to pharmacy for barcode.
Received from pharm and administered.
--- NOTE | 2025-06-03 11:18 | W.DCSUMMARY ---
Discharge Summary
Discharge Data
Date of Admission: 06/01/25
Date of Discharge: 06/03/25
-
Pending Results: No
Hospital Course
Discharge diagnosis:
Non-ST elevation myocardial infarction
Unstable angina
Newly diagnosed atrial flutter
Moderate aortic stenosis
Essential hypertension
Hyperlipidemia
Benign prostatic hypertrophy
Depression
Consults: Cardiology
Procedures:
06/02/2025 cardiac catheterization
CONCLUSIONS
1. Mildly elevated biventricular filling pressures, normal pulmonary artery pressure, and normal cardiac output.
2. Valve study with demonstration of moderate to severe aortic valve stenosis, consistent with echocardiography.
3. Severe coronary artery disease as described with no clear culprit lesion to explain the patient's presentation but demonstration by IVUS and angiography of focally significant ostial LAD stenosis, angiographic progression of focal mid LAD
stenosis, and stable moderate proximal RCA ISR. On previous angiography, the LAD had been interrogated by FloWire with demonstration of a diffuse pattern of positivity in the proximal vessel with focal residual positivity at the ostium. In the
present study, IVUS of the ostial LAD was performed. There is noted to be significant concertina effect produced by wiring of the LAD. This may explain the previous finding of diffuse positivity in the proximal LAD despite normal angiographic
appearance. The residual positivity found on the prior study (0.93) is likely real and a result of true ostial disease which has further progressed and this time was demonstrated by IVUS to be of borderline severity (MLA ~4.0 mm2).
RECOMMENDATIONS: Overall, this is a patient presenting with ACS, without obvious culprit lesion but coronary artery disease that is of borderline severity by angiographic and IVUS criteria in difficult to stent locations, including the ostial LAD in
setting of a short left main with large LCx system. There is also moderate ISR in the RCA which is likely to progress over time and will be difficult to treat further given multiple overlapping stents. Finally there is moderate to severe aortic
valve stenosis which has been slowly progressive. In this setting, I think the best course of action is to proceed with AVR/CABG with grafts to both the LAD and RCA. The patient has been discussed with Dr. Alex Carbajal who will be seeing him in the
near future in the outpatient setting.
Hospital course:
75-year-old male with a past medical history of CAD status post stent placement, BPH, hypertension, hyperlipidemia, and aortic stenosis presented with chest pain. He was found to be in new onset atrial flutter, and also have a non-ST elevation
myocardial infarction.
He was treated with an IV heparin drip. He was seen in conjunction with cardiology, and underwent cardiac catheterization on 06/02/2025, which showed multivessel coronary artery disease, and worsening aortic stenosis. Cardiology recommends he be
discharged on Eliquis 5 mg twice a day, Plavix 75 mg daily, and increased dose of atorvastatin 40 mg at bedtime. His aspirin is discontinued. He is referred to CT surgery outpatient for evaluation for CABG and aortic valve repair. He did not have
any recurrence of chest pain. He is medically stable and cleared by cardiology for discharge. He needs to follow-up with his PCP in 1 week, cardiology, and CT surgery as directed.
Disposition: Home self-care
Discharge planning: Required 37 minutes
Discharge Plan
-
Patient Disposition: Home (Routine Discharge)
Discharge Diagnosis/Procedures: Non-ST elevation myocardial infarction, aortic stenosis, new onset atrial flutter, coronary artery disease, status post cardiac catheterization
Condition: Fair
Diet: Low Fat and Low Cholesterol
Activity: No strenuous activity
Additional Activity: no heavy lifting >10lbs, no strenuous activity, no sexual activity until after cardiac surgery. If you get chest pain, please call 911/go to ER immediately
Driving Restrictions: No driving for 24 hours
Activity Restrictions/Additional Instructions:
Cardiology increased your atorvastatin to 80 mg every afternoon.
You need to take Eliquis/apixaban to prevent your risk of stroke due to atrial flutter.
Please follow-up with your primary care provider in 1 week, and cardiology/CT surgery as directed.
Stand Alone Forms: DC Instructions- Cath/EP Lab
Referrals:
Ashvin Tang DO [Family Provider, [facility]] - in one week
Tucker Barnes MD [Active, Cardiology] - 06/10/25 9:40 am
Alex Carbajal MD [Active, Cardiac Surgery] - 06/14/25 9:00 am
Referral Note: Follow up with Dr. Carbajal to discuss heart surgery.
Additional Discharge Medication Instructions: STOP aspirin- you will start eliquis 5mg twice a day
Prescriptions:
New
atorvastatin 80 mg Tablet
80 mg PO QPM Qty: 30 0RF
Eliquis 5 mg Tablet
5 mg PO BID Qty: 60 0RF
Continued
desvenlafaxine succinate [Pristiq] 100 MG tablet extended release 24 hr
200 mg PO DAILY
methylphenidate HCl [Concerta] 36 MG tablet extended release 24hr
36 mg PO DAILY
tamsulosin 0.4 MG capsule
0.4 mg PO DAILY
clopidogrel 75 MG tablet
75 mg PO DAILY Qty: 90 3RF
nitroglycerin 0.4 MG tablet, sublingual
0.4 mg sublingual [id number] PRN (Reason: chest pain) Qty: 25 2RF
bupropion HCl [Wellbutrin XL] 300 mg Tablet Extended Release 24 Hr
300 mg PO DAILY
diltiazem HCl 180 mg Capsule,Extended Release 24 Hr
180 mg PO DAILY
losartan 50 mg Tablet
50 mg PO BID
isosorbide mononitrate 60 mg Tablet Extended Release 24 Hr
60 mg PO DAILY
hydrochlorothiazide 12.5 mg Capsule
12.5 mg PO DAILY
omega 4-hij-iht-fish oil [Fish Oil] 1,200 (144-216) mg Capsule
1 cap PO DAILY
Discontinued
atorvastatin 40 MG tablet
40 mg PO DAILY
aspirin 81 MG tablet,delayed release (DR/EC)
81 mg PO DAILY
Discharge Orders:
Discharge Patient (As Directed); Ordered 06/03/25
Ordered By: Franco Lovell
Discharge Date and Time
Discharge Date/Time: 06/03/25 12:07
Print Language: MAORI
[2025-06-03 11:44] VITALS: BP 114/52
--- NOTE | 2025-06-03 12:44 | CM ---
MD entered order for discharge.
Pts drove him home.
Offered VN he declined.
Elid[employer] coupon as requested by .
After discharge will need cardiac surgery.
PLAN Home no needs
--- NOTE | 2025-06-03 16:11 | ITS.CL.PN ---
Consultants Intern - Procedure Note
Procedure
Procedure Note:
CARDIAC CATHETERIZATION REPORT
Date of Procedure: 06/02/2025
Referring: Dr. Gulshan Viveros MD
Indication: NSTEMI, low flow low gradient severe
PROCEDURE(S)
1. right heart catheterization
2. left heart catheterization
3. coronary angiography
4. IVUS LAD
ACCESS
1. 6F right radial artery (closure: radial band)
2. 5F right antecubital vein (closure: manual hemostasis)
CATHETERS
1. 5F [place]
2. 6F JR4
3. 6F JL4
4. 6F EBU3.75
MODERATE SEDATION: 45 minutes of moderate sedation was utilized. An independent medical review coordinator was present to assist with and help manage the patient's level of consciousness and physiologic status.
HEMODYNAMIC DATA
LV 129/13 (EDP 20) mmHg
AO 94/47 (mean 61) mmHg
RA 9 mmHg
RV 30/6 (EDP 11) mmHg
PA 28/12 (mean 19) mmHg
PCWP 13 mmHg
SaO2 94.1%
SvO2 68.2%
Hb 13.4 g/dL
CO/CI 5.38/2.65 L/min/m2
SVR 773 dsc*-5
PVR 1.1 Wood units
Valve study with dual lumen catheter: mean gradient 26.4 at heart rate 59 giving SVI 44.9 mL/m2 and CORRINA 1.4 cm2 (0.69 cm2/m2 indexed to BSA)
CORONARY ANGIOGRAPHY
Dominance: right
LM: Short, large vessel with no significant disease
LAD: Large vessel giving rise to a small D1 and moderate caliber D2. There is angiographically difficult to appreciate focal calcific disease in the ostial LAD. There is also progression of a focal mildly calcified stenosis in the mid-distal LAD now
60 to 70%.
LCx: Large vessel giving rise to a moderate caliber high rising OM1/ramus and large OM2. There is a stent in the proximal aspect of the OM with mild up to 30 to 40% ISR.
RCA: Large vessel giving rise to moderate caliber RPDA and moderate caliber RPL branch. There are multiple overlapping stents in the ostial to mid and distal RCA. There is moderate ISR in the proximal RCA and a region of overlapping stents.
IVUS of ostial LAD
An [place] IVUS catheter was advanced to the proximal LM and ringdown performed. The catheter was advanced to the proximal LAD and pullback performed. There is demonstration of calcific disease with focally severe disease of the LAD ostium with
MLA measured of approximately 4.0 mm�.
RADIATION: dose 698 mGy; DAP 39.2 Gy*cm2; fluoroscopy time 21.7 min
CONCLUSIONS
1. Mildly elevated biventricular filling pressures, normal pulmonary artery pressure, and normal cardiac output.
2. Valve study with demonstration of moderate to severe aortic valve stenosis, consistent with echocardiography.
3. Severe coronary artery disease as described with no clear culprit lesion to explain the patient's presentation but demonstration by IVUS and angiography of focally significant ostial LAD stenosis, angiographic progression of focal mid LAD
stenosis, and stable moderate proximal RCA ISR. On previous angiography, the LAD had been interrogated by FloWire with demonstration of a diffuse pattern of positivity in the proximal vessel with focal residual positivity at the ostium. In the
present study, IVUS of the ostial LAD was performed. There is noted to be significant concertina effect produced by wiring of the LAD. This may explain the previous finding of diffuse positivity in the proximal LAD despite normal angiographic
appearance. The residual positivity found on the prior study (0.93) is likely real and a result of true ostial disease which has further progressed and this time was demonstrated by IVUS to be of borderline severity (MLA ~4.0 mm2).
RECOMMENDATIONS: Overall, this is a patient presenting with ACS, without obvious culprit lesion but coronary artery disease that is of borderline severity by angiographic and IVUS criteria in difficult to stent locations, including the ostial LAD in
setting of a short left main with large LCx system. There is also moderate ISR in the RCA which is likely to progress over time and will be difficult to treat further given multiple overlapping stents. Finally there is moderate to severe aortic
valve stenosis which has been slowly progressive. In this setting, I think the best course of action is to proceed with AVR/CABG with grafts to both the LAD and RCA. The patient has been discussed with Dr. Alex Carbajal who will be seeing him in the
near future in the outpatient setting.
Copy to: Dr. Ashvin Tang DO (PCP)
Signed: Tucker Barnes MD, PhD
[2025-06-03 19:58] LABS: Hepatitis C Antibody Negative (Negative)
== END 2025-06-03 12:07 | disposition home or self-care (01) | DRG 281 ==
LOC: 3 WEST ACU 23:10
PROVIDERS: Emergency Medicine; Nurse Practitioner; Physician Assistant Medical; Student in an Organized Health Care Education/Training Program; ADMITTING PHYSICIAN Hospitalist; ATTENDING PHYSICIAN Family Medicine; EMERGENCY PHYSICIAN Student in an Organized Health Care Education/Training Program; FAMILY PHYSICIAN Family Medicine; OTHER PHYSICIAN Internal Medicine
PROC: B240ZZ3 Ultrasonography of Single Coronary Artery, Intravascular (ICD-10-PCS; 2025-06-02)
PROC: B2111ZZ Fluoroscopy of Multiple Coronary Arteries using Low Osmolar Contrast (ICD-10-PCS; 2025-06-02)
PROC: 4A023N8 Measurement of Cardiac Sampling and Pressure, Bilateral, Percutaneous Approach (ICD-10-PCS; 2025-06-02)
PROC: B2151ZZ Fluoroscopy of Left Heart using Low Osmolar Contrast (ICD-10-PCS; 2025-06-02)
DX: I21.4 Non-ST elevation (NSTEMI) myocardial infarction (principal); I48.92 Unspecified atrial flutter; T82.855A Stenosis of coronary artery stent, initial encounter; I35.2 Nonrheumatic aortic (valve) stenosis with insufficiency; E78.00 Pure hypercholesterolemia, unspecified; Y83.1 Surgical operation with implant of artificial internal device as the cause of abnormal reaction of the patient, or of later complication, without mention of misadventure at the time of the procedure; I25.10 Atherosclerotic heart disease of native coronary artery without angina pectoris; E78.1 Pure hyperglyceridemia; N40.0 Benign prostatic hyperplasia without lower urinary tract symptoms; I73.9 Peripheral vascular disease, unspecified; G62.9 Polyneuropathy, unspecified; G25.81 Restless legs syndrome; F32.A Depression, unspecified; F90.9 Attention-deficit hyperactivity disorder, unspecified type; K58.9 Irritable bowel syndrome, unspecified; I10 Essential (primary) hypertension; I25.2 Old myocardial infarction; Z95.5 Presence of coronary angioplasty implant and graft; Z52.3 Bone marrow donor; Z83.3 Family history of diabetes mellitus; Z82.49 Family history of ischemic heart disease and other diseases of the circulatory system; Z79.82 Long term (current) use of aspirin; Z79.02 Long term (current) use of antithrombotics/antiplatelets
CPT/HCPCS: 80048; 80053; 80061; 83735; 84443; 84484; 85025; 85027; 85347; 85610; 85730; 86803; 92978; 93005; 93306; 93460; 96365; 99152; 99153; 99284; C1753; C1769; C1894; Q9967

== ENCOUNTER 2025-06-05 05:29 | Emergency (ER) | payer MEDICARE, OTHER, SELFPAY ==
[2025-06-05 05:42] VITALS: BP 131/64; BMI 29.4
[2025-06-05 06:37] LABS: Hematocrit 36.1 % (39.0-52.0); Hemoglobin 12.1 g/dL (13.0-18.0); Mean Corp Hgb Conc. 33.5 g/dL (33.0-37.0); Mean Corpuscular Volume 90.9 fL (80.0-94.0); Nucleated Red Blood Cells % 0 % (-); Platelet Count 175 10^3/uL (130-400); Red Cell Dist. Width 14.1 % (11.5-14.5)
[2025-06-05 06:41] LABS: INR 1.00; PT 13.4 Sec (11.4-14.6)
[2025-06-05 06:45] LABS: ALT (SGPT) 27 U/L (0-50); AST (SGOT) 24 U/L (17-59); Albumin 4.0 g/dl (3.5-5.0); Alkaline Phosphatase 57 U/L (38-126); Blood Urea Nitrogen 21 mg/dl (9-20); Calcium 9.4 mg/dl (8.4-10.2); Carbon Dioxide 28 mmol/L (22-30); Chloride 109 mmol/L (98-107); Estimated Creatinine Clearance 80 ml/min; Glucose 107 mg/dl (70-99); Potassium 4.0 mmol/L (3.5-5.1); Sodium 140 mmol/L (135-145); Total Protein 6.3 g/dl (6.3-8.2); eGFR > 60.00
[2025-06-05 07:01] VITALS: BP 116/97
--- NOTE | 2025-06-05 07:01 | ED.MUSCINJ ---
HPI-Injury
<Haroldo Matthews, DO - Last Filed: 06/05/25 07:02>
General
Chief Complaint: Soft Tissue Injury
Time Seen by Provider: 06/05/25 06:16
<Linda Shirley MD, Resident - Last Filed: 06/05/25 09:52>
General
Source: patient
Exam Limitations: none
Nursing documentation reviewed up to this point in time: agreed with
History of Present Illness-Injury
Is this injury a work related problem?: No
Is pt an associate of [facility]?: No
Initial Injury comments:
Mr. Cody Perry is a 75yoM with a PMH of CAD (s/p 9 stents), aortic valve stenosis, and new-onset afib (on Eliquis), who is presenting for an expanding groin bruise 3 days after cardiac catheterization with the groin as the access site
(for angina at rest).
He noticed a raised smaller area at first, which has since flattened an expanded. He denies lightheadedness, fatigue, and groin pain.
He started Eliquis 2 days ago for newly diagnosed afib.
Past History
<Haroldo Matthews, DO - Last Filed: 06/05/25 07:02>
Past History
ED Past Medical History: CAD, HTN, Hypercholesterolemia (Hypertriglyceridemia ), CO and Psychiatric (Depression )
ED Past Surgical History: Cardiac (Angioplasty with stenting, Stents X 7) and Other (The patient has been a bone marrow donor )
Social History
Tobacco: Non-smoker
Alcohol: Daily (Rum 2 glasses or mixed drinks)
Personal:
Living: with family
Employment: Employed
Family History
Family History: Diabetes, Hypertension and CAD; Negative Asthma or Cancer
Review of Systems
<Linda Shirley MD, Resident - Last Filed: 06/05/25 09:52>
Review of Systems
All Other Systems: ROS reviewed and negative except as documented in HPI and ROS
Phy Exam
<Linda Shirley MD, Resident - Last Filed: 06/05/25 09:52>
Physical Exam
Physical Exam:
CV:
purple skin discoloration at R groin extending past midline and to R IT band. no R groin bruit auscultated
Regular rhythm, bradycardic
LLE is well-perfused. Radial pulses 2+ b/l
Lungs: CTAB
GI: normal bowel sounds; no tenderness to palpation
General: no apparent distress
Injury Course
<Haroldo Matthews, DO - Last Filed: 06/05/25 07:02>
Orders/Labs/Results
Orders:
Orders
06/05/25 05:32
Electrocardiogram (*1) Urgent
Reason for Study: Chest Pain
IV Insert/Care/Rem.- Treatment PRN
O2 Therapy [RESP] Urgent
Titrate/Wean O2 to maintain O2 sat greater than (%): 90
Special Instructions: Maintain sats >/=90%
Pulse Ox/spot Check [RESP] Urgent
Quantity: 1
Special Instructions: ON ROOM AIR
06/05/25 06:22
Complete Blood Count/With Diff Urgent
Comprehensive Metabolic Panel Urgent
PT/INR [Prothrombin Time] Urgent
06/05/25 07:00
US Groin (vascular exam) RT Urgent
Comment:
Reason For Exam: R groin pain
Abnormal Lab Results
06/05/25
06:22
WBC 4.6 L 10^3/uL
(4.8-10.8)
RBC 3.97 L 10^6/uL
(4.70-6.10)
Hgb 12.1 L g/dL
(13.0-18.0)
Hct 36.1 L %
(39.0-52.0)
MPV 10.6 H fL
(7.4-10.4)
Monocytes % 10.8 H %
(1.7-9.3)
Chloride 109 H mmol/L
(98-107)
BUN 21 H mg/dl
(9-20)
Glucose 107 H mg/dl
(70-99)
06/05/25 06:22
06/05/25 06:22
<Linda Shirley MD, Resident - Last Filed: 06/05/25 09:52>
Orders/Labs/Results
Orders:
Orders
06/05/25 05:32
Electrocardiogram (*1) Urgent
Reason for Study: Chest Pain
IV Insert/Care/Rem.- Treatment PRN
O2 Therapy [RESP] Urgent
Titrate/Wean O2 to maintain O2 sat greater than (%): 90
Special Instructions: Maintain sats >/=90%
Pulse Ox/spot Check [RESP] Urgent
Quantity: 1
Special Instructions: ON ROOM AIR
06/05/25 06:22
Complete Blood Count/With Diff Urgent
Comprehensive Metabolic Panel Urgent
PT/INR [Prothrombin Time] Urgent
06/05/25 07:00
US Groin (vascular exam) RT Urgent
Comment:
Reason For Exam: R groin pain
Abnormal Lab Results
06/05/25
06:22
WBC 4.6 L 10^3/uL
(4.8-10.8)
RBC 3.97 L 10^6/uL
(4.70-6.10)
Hgb 12.1 L g/dL
(13.0-18.0)
Hct 36.1 L %
(39.0-52.0)
MPV 10.6 H fL
(7.4-10.4)
Monocytes % 10.8 H %
(1.7-9.3)
Chloride 109 H mmol/L
(98-107)
BUN 21 H mg/dl
(9-20)
Glucose 107 H mg/dl
(70-99)
06/05/25 06:22
06/05/25 06:22
<Linda Shirley MD, Resident - Last Filed: 06/05/25 09:52>
MDM/Problems Addressed
MDM/Problems Addressed:
Mr. Perry is a 75yoM with a PMH of CO (2000 s/p PCI), afib (on Eliquis), aortic valve stenosis, who is presenting for R groin hematoma 3 days after cardiac catheterization.
Vitals are stable at bp 110s-130s, HR 50s, SaO2 99, and RR 10-20. His Hb is incrementing appropriately to 12.1 today 06/05/25 from 11.6 on 06/03/25.
Groin vascular ultrasound to evaluate for pseudoaneurysm, hematoma, and AV fistula. A retroperitoneal hematoma is being considered but less likely given his hemodynamic stability. Will consider IV fluids, transfusion, or anticoagulation reversal is
patient becomes unstable.
Groin vascular ultrasound was negative for concerning vascular injury. Given patient is hemodynamic stable and taking Eliquis, he most likely only had a superficial, subcutaneous bleed.
Chronic conditions affecting care: CAD
<Haroldo Matthews, DO - Last Filed: 06/05/25 07:02>
*Pulse Oximetry
SaO2: 99
Oxygen Mode of Delivery: Room air
<Linda Shirley MD, Resident - Last Filed: 06/05/25 09:52>
*Pulse Oximetry
Patient hypoxic: no
*Critical Care Note
Total Time (30-74mins, 75-104mins- exclusive of procedures): Not Applicable
ED Attending Note
<Haroldo Matthews, DO - Last Filed: 06/05/25 07:02>
ED Attending Note
Patient seen and examined by attending physician: Yes
I performed a history and physical exam of patient and discussed management with resident, I reviewed resident's note and agree with documented findings and plan of care.: Yes
ED Attending Note:
I have seen and evaluated the patient with a [id number] encounter. I have spoken to the resident and involved in the medical history, the physical exam, medical decision making.
Evaluation and management service: agree unless noted differently below.
Results interpretation: agree unless noted differently below.
Focused HPI: 75-year-old male presenting with right groin pain. Patient was recently admitted for intermittent chest discomfort given his significant history of coronary artery disease. He underwent a catheterization in his right groin and is
supposed to follow-up with CT surgery in the outpatient setting for evaluation of CABG and aortic stenosis
Physical exam: Right groin swelling and ecchymosis. Right leg DP pulses intact
Medical Decision Making: Will obtain ultrasound to rule out evidence of pseudoaneurysm
-
Portions of this chart may have been created with voice recognition software.� Occasional wrong word or��sound alike� substitutions may have occurred due to the inherent limitations of voice recognition software.
Discharge Plan
Departure
Patient Disposition: Home (Routine Discharge)
Date of Disposition: 06/05/25
Time of Disposition: 09:36
Patient with high blood pressure during this ER visit?: No
Discharge Problem:
Postoperative ecchymosis
Instructions: How to take anticoagulants safely, Managing increased bleeding risk
Prescriptions:
No Action
desvenlafaxine succinate [Pristiq] 100 MG tablet extended release 24 hr
200 mg PO DAILY
methylphenidate HCl [Concerta] 36 MG tablet extended release 24hr
36 mg PO DAILY
tamsulosin 0.4 MG capsule
0.4 mg PO DAILY
clopidogrel 75 MG tablet
75 mg PO DAILY Qty: 90 3RF
nitroglycerin 0.4 MG tablet, sublingual
0.4 mg sublingual [id number] PRN (Reason: chest pain) Qty: 25 2RF
bupropion HCl [Wellbutrin XL] 300 mg Tablet Extended Release 24 Hr
300 mg PO DAILY
diltiazem HCl 180 mg Capsule,Extended Release 24 Hr
180 mg PO DAILY
losartan 50 mg Tablet
50 mg PO BID
isosorbide mononitrate 60 mg Tablet Extended Release 24 Hr
60 mg PO DAILY
hydrochlorothiazide 12.5 mg Capsule
12.5 mg PO DAILY
omega 7-nrl-syd-fish oil [Fish Oil] 1,200 (144-216) mg Capsule
1 cap PO DAILY
atorvastatin 80 mg Tablet
80 mg PO QPM Qty: 30 0RF
Eliquis 5 mg Tablet
5 mg PO BID Qty: 60 0RF
Referrals:
UNKNOWN - PT DOES,NOT KNOW [Family Provider]
Activity Restrictions/Additional Instructions:
Dear Mr. Perry, you came to the ED due to the expanding bruise / skin discoloration at your right groin where the cardiac catheterization instrumentation was placed.
You were evaluated by an ultrasound for severe vessel injury, such as fistula or pseudoaneurysm, and the ultrasound revealed none. The bruise is most likely limited to superficial bleeding. The skin discoloration should eventually return to normal.
Please seek medical attention if you notice pain, a mass, or a pulsating mass at your right groin or notice right leg weakness or tingling.
Interventions
Interventions:
*Risk Screen - Suicide Last Done: 06/05/25 05:42
*General Assessment Last Done: 06/05/25 05:42
*Neglect/Abuse Screening Last Done: 06/05/25 06:58
*ED- Fall Risk Assessment Last Done: 06/05/25 05:42
*ED COVID-19 Vaccine History Last Done: 06/05/25 05:42
ED-Musculoskeletal Assessment Last Done: 06/05/25 05:42
ED-Skin Assessment Last Done: 06/05/25 07:02
Discharge Date and Time
Print Language: ARMENIAN
[2025-06-05 07:09] VITALS: BP 122/61
[2025-06-05 08:00] VITALS: BP 110/59
== END 2025-06-05 10:26 | disposition home or self-care (01) ==
LOC: EMR 05:29
PROVIDERS: Emergency Medicine; EMERGENCY PHYSICIAN Student in an Organized Health Care Education/Training Program
DX: L76.32 Postprocedural hematoma of skin and subcutaneous tissue following other procedure (principal); Z79.01 Long term (current) use of anticoagulants; I48.91 Unspecified atrial fibrillation
CPT/HCPCS: 99285; 80053; 85025; 85610; 93926

== ENCOUNTER → 2025-06-21 07:11 | Outpatient (REF) | payer MEDICARE, OTHER, SELFPAY | LOC: RAD 07:11 | PROVIDERS: ATTENDING PHYSICIAN Thoracic Surgery (Cardiothoracic Vascular Surgery); FAMILY PHYSICIAN Family Medicine; OTHER PHYSICIAN Student in an Organized Health Care Education/Training Program | DX: I25.10 Atherosclerotic heart disease of native coronary artery without angina pectoris (principal); Z01.810 Encounter for preprocedural cardiovascular examination | CPT/HCPCS: 75573; Q9967 ==

== ENCOUNTER 2025-06-23 05:29 | Inpatient (IN) | payer MEDICARE, OTHER, SELFPAY ==
[2025-06-18 12:16] VITALS: BMI 29.5
[2025-06-18 12:57] LABS: Hematocrit 35.7 % (39.0-52.0); Hemoglobin 12.2 g/dL (13.0-18.0); Mean Corp Hgb Conc. 34.2 g/dL (33.0-37.0); Mean Corpuscular Volume 89.3 fL (80.0-94.0); Nucleated Red Blood Cells % 0 % (-); Platelet Count 219 10^3/uL (130-400); Red Cell Dist. Width 13.6 % (11.5-14.5)
--- NOTE | 2025-06-18 12:58 | CM ---
Chart reviewed. Met with the patient and his in PAT. Reviewed preoperative and postoperative instructions and restrictions, along with showering guidelines. Gave patient 2 soaps. Patient is agreeable to a home visit by CT Transitional RN.
Patient is independent of ADLS, lives with his in a 2 STH, 0 MAYANK, 0 DME. Plan is for the patient to return home with CT Transitional RN. Please call when setting up appointment for CT Transitional RN.
[2025-06-18 12:59] LABS: Urine Character Clear (Clear)
[2025-06-18 13:01] LABS: INR 1.10; PT 14.5 Sec (11.4-14.6)
[2025-06-18 13:18] LABS: ALT (SGPT) 21 U/L (0-50); AST (SGOT) 20 U/L (17-59); Albumin 4.3 g/dl (3.5-5.0); Alkaline Phosphatase 76 U/L (38-126); Blood Urea Nitrogen 22 mg/dl (9-20); Calcium 9.1 mg/dl (8.4-10.2); Carbon Dioxide 25 mmol/L (22-30); Chloride 104 mmol/L (98-107); Estimated Creatinine Clearance 78 ml/min; Glucose 98 mg/dl (70-99); Potassium 3.8 mmol/L (3.5-5.1); Sodium 135 mmol/L (135-145); Total Protein 6.5 g/dl (6.3-8.2); eGFR > 60.00
[2025-06-18 13:22] LABS: Urine Squamous Cell 0-2 /LPF (Few)
[2025-06-18 13:23] LABS: Urine White Cell 0-2 /HPF (0-5)
[2025-06-18 14:14] LABS: Glycohemoglobin (HgbA1c) 5.7 % (4.0-5.6)
[2025-06-23] VITALS (7 sets, daily range): BP systolic -3–119; BP diastolic 66–78; BMI 28.8
[2025-06-23] MEDS: PROTONIX 40 MG PO (05:50)
[2025-06-23] MEDS: LOPRESSOR 25 MG PO (05:51)
[2025-06-23] MEDS: MAGNESIUM OXIDE 500 MG PO (05:51)
[2025-06-23] MEDS: BACTROBAN 2% OINTMENT 1 APPLIC NASAL ×2 (05:52→20:15)
--- NOTE | 2025-06-23 06:06 | PTCARENOTE ---
Patient arrived into room 2262 for same day procedure with Dr Carbajal. Patient clipped, and washed with CHG wipes, med rec and admission questions completed, Patient confirmed NPO status since midnight, and CHG showers x 2. ID band verify. awaiting
CVOR for transport. Mary Kate at bedside, patient educated on IS and sternal procautions post op.
--- NOTE | 2025-06-23 06:54 | W.CVOR.SURPR ---
CVOR Surgeon Immed Pre Op
-
I have examined this patient prior to performance of the scheduled procedure.
The patient's condition is unchanged from the time of the dictated/written History and
Physical and the patient is able to undergo the scheduled procedure.
Sternotomy AVR, CABG, MAZE, LAAE
[2025-06-23 08:13] LABS: Urine Character Clear (Clear)
[2025-06-23 08:21] LABS: ACT+ - POC 112 Seconds (82-134)
--- NOTE | 2025-06-23 08:51 | CM ---
Patient in OR today for planned CABG/AVR.
Reviewed initial assessment. Pt. resides w/ spouse in a private, 2 STH w/ 0 MAYANK. Functionally, patient is indep. w/ ADLs, mobility without the use of any assisted device.
Antic. DC to home w/ CT Transitional Care RN.
CM will follow.
[2025-06-23 09:24] LABS: Urine Red Blood Cell 30-40 /HPF (0-2)
[2025-06-23 09:50] LABS: ACT+ - POC 647 Seconds (82-134)
[2025-06-23 10:20] LABS: ACT+ - POC 697 Seconds (82-134)
[2025-06-23 11:00] LABS: ACT+ - POC 647 Seconds (82-134)
[2025-06-23 11:23] LABS: B.E. - POC 6.1 mmol/L; Glucose - POC 177 mg/dl (70-99); HCO3 - POC 30 mmol/L (21-28); Hematocrit - POC 29 % PCV (42-52); Hemodilution- POC Yes; Hemoglobin Calculated - POC 9.8; Ionized Calcium - POC 1.03 mmol/L (1.15-1.33); Lactate - POC 1.04 mmol/L (0.36-0.75); O2 Saturation %Calculated-POC 99.9 % (94-98); PCO2 - POC 39 mmHg (35-48); PO2 - POC 306 mmHg (83-108); POC Comment CPB; Potassium - POC 5.5 mmol/L (3.5-5.1); Sodium - POC 141 mmol/L (136-145); Specimen Type - POC Arterial; pH - POC 7.49 (7.35-7.45)
[2025-06-23 11:35] LABS: ACT+ - POC 608 Seconds (82-134)
[2025-06-23 12:00] LABS: B.E. - POC 2.9 mmol/L; Glucose - POC 160 mg/dl (70-99); HCO3 - POC 27 mmol/L (21-28); Hematocrit - POC 29 % PCV (42-52); Hemodilution- POC Yes; Hemoglobin Calculated - POC 9.8; Ionized Calcium - POC 1.01 mmol/L (1.15-1.33); Lactate - POC 1.43 mmol/L (0.36-0.75); O2 Saturation %Calculated-POC 99.9 % (94-98); PCO2 - POC 37 mmHg (35-48); PO2 - POC 239 mmHg (83-108); POC Comment WARM; Potassium - POC 4.0 mmol/L (3.5-5.1); Sodium - POC 143 mmol/L (136-145); Specimen Type - POC Arterial; pH - POC 7.47 (7.35-7.45)
[2025-06-23 12:03] LABS: ACT+ - POC 123 Seconds (82-134)
[2025-06-23 12:09] LABS: B.E. - POC 4.2 mmol/L; Glucose - POC 113 mg/dl (70-99); HCO3 - POC 28 mmol/L (21-28); Hematocrit - POC 34 % PCV (42-52); Hemodilution- POC No; Hemoglobin Calculated - POC 11.6; Ionized Calcium - POC 1.18 mmol/L (1.15-1.33); Lactate - POC < 0.30 mmol/L (0.36-0.75); O2 Saturation %Calculated-POC 99.9 % (94-98); PCO2 - POC 36 mmHg (35-48); PO2 - POC 307 mmHg (83-108); POC Comment PRE; Potassium - POC 3.6 mmol/L (3.5-5.1); Sodium - POC 140 mmol/L (136-145); Specimen Type - POC Arterial; pH - POC 7.49 (7.35-7.45)
[2025-06-23 12:09] LABS: B.E. - POC 6.8 mmol/L; Glucose - POC 124 mg/dl (70-99); HCO3 - POC 31 mmol/L (21-28); Hematocrit - POC 26 % PCV (42-52); Hemodilution- POC Yes; Hemoglobin Calculated - POC 8.8; Ionized Calcium - POC 1.02 mmol/L (1.15-1.33); Lactate - POC < 0.30 mmol/L (0.36-0.75); O2 Saturation %Calculated-POC 100.0 % (94-98); PCO2 - POC 43 mmHg (35-48); PO2 - POC 501 mmHg (83-108); POC Comment CPB; Potassium - POC 5.7 mmol/L (3.5-5.1); Sodium - POC 140 mmol/L (136-145); Specimen Type - POC Arterial; pH - POC 7.47 (7.35-7.45)
--- NOTE | 2025-06-23 12:17 | W.PN.CT.SURG ---
CT Surgery Operative Note
-
CARDIAC SURGERY OPERATIVE REPORT
Preoperative Diagnosis: Aortic valve stenosis (severe) with multivessel coronary artery disease involving the ostial LAD, Atrial Fibrillation
Postoperative Diagnosis: Same
Procedure(s) Performed:
1. Standard sternotomy with aortic and right atrial cannulation
2. Modified left atrial maze [encompass clamp, posterior wall lesion set]
3. Left atrial appendage exclusion [35 mm device]
4. Surgical aortic valve replacement [25 mm biological prosthesis]
5. Harvesting of left and right internal mammary arteries
6. Coronary artery bypass grafting x 2 (In situ ELLSWORTH to LAD, Ao to RSVG to RPDA)
7. Endoscopic vein harvesting the right lower extremity
8. Placement temporary atrial and ventricular pacing wires
9. Trans-esophageal echocardiography
Date of Surgery: 06/23/2025
Comorbidities:
1. Multivessel coronary artery disease involving the ostial LAD and in-stent restenosis
2. CAD with previous PCI and stenting
3. Hyperlipidemia
4. Recent NSTEMI
5. Hypertension
6. Peripheral neuropathy
7. Severe aortic valve stenosis [low-flow low gradient]
8. Paroxysmal atrial fibrillation on chronic anticoagulation
Attending Surgeon: Alex Carbajal MD, MS
Assistants: Etienne Beach, PGY 2 (Cardiac Surgery Resident - Project Superintendent throughout case), Miriam Pearce PA-C (present and necessary to second assist, retraction, suction, exposure, suture management, and wound closure under my direction), Floresita
SURAJ Velez (endo vein harvest)
Anesthesiology: Karel Orta MD and Andres García CRNA
Scrub and Circulating RNs: Mona Travis, MAXINE, aRs Shelton RN
[place] Operator: Arsen Kirby CCP
Anesthesia: GETA
EBL: per perfusion records
Products: None
CPB Time: 118 minutes
Aortic Cross Clamp Time: 101 minutes
Indication(s) for Procedures: This is a 74-year-old male with severe aortic valve stenosis, low-flow low gradient, multivessel coronary disease with history of stenting x 3 in the past with a recent NSTEMI. He has in-stent restenosis and a new
ostial LAD lesion. Given his findings, he was offered surgical revascularization as well as surgical aortic valve replacement. He had new onset atrial fibrillation and was placed on Eliquis for anticoagulation, given this finding he was also
offered maze and left atrial appendage exclusion. He was symptomatic in the sense of exertional dyspnea as well as some chest tightness. And given his recent admission for NSTEMI we work to expedite his surgery.
Aortic Valve Description: Heavily calcified mostly towards the body of the leaflets, there is some infiltration into the annulus towards the right coronary cusp. The stent to the ostium of the right coronary was visible in the aorta and protruding
approximately 2 mm. Care was taken to not damage across the stent while placing the valve.
Conduit(s) Quality:
ELLSWORTH -good/the ELLSWORTH initially is quite tortuous and seemed of small caliber. The flow in the ELLSWORTH initially was somewhat sluggish and so I opted to partially skeletonized and harvest the JESUS MANUEL and left it hanging with the distal and proximal end
still connected. After period of soaking it into the papaverine Ray-Razia, the ELLSWORTH did plump up and looked normal.
RSVG -excellent/uniform, minimal varicosities and no inflammation or thickening
Target(s) Quality:
RCA/PDA -good/easily accommodated 1.5 mm probe, an end-to-side anastomosis was created with the vein graft, mean flows on Transonic flow probe assessment was 35 cc a minute with a pulsatility index of 5.3
R PLB -very small and so I opted not to graft this vessel
LAD -excellent/I performed an approximate 1.5 cm long anastomosis across the distal lesion into the normal LAD, there is excellent visual flow in the LAD territory with forwarded back filling into the diagonal vessels. Mean flow was 13 cc a minute
with a pulse index of 2.7.
Findings: LVEF on intraoperative NINA was 60% and 60% post procedure with no new regional wall motion abnormalities. The aortic valve was heavily calcified mostly towards the body of the leaflets with some infiltration towards right coronary cusp at
the annulus. After excision of the valve a total of 14 nonpledgeted 2 Ethibond sutures were placed from LVOT through annulus the sewing cuff of the valve securing a [address]. There was no prosthetic PVL or AI. Mean gradient
across the prosthesis was 6 mmHg. of note, the left and right coronary ostia within normal anatomic positions, there was a stent protruding from the right coronary ostia that was approximately 2 mm out into the aorta. Care was taken to not crush or
damage the stent while parachuting the valve into place. The ELLSWORTH was harvested in a semi-skeletonized fashion. Initially the ELLSWORTH looked to be small and tortuous and I was concerned about the sluggish flow and so I clipped it and distally and
then placed it inside of a papaverine soaked blanket. I then partially harvested the JESUS MANUEL in a skeletonized fashion leaving the distal end connected retaining its normal flow. This was done in the event that I would need to perform a JESUS MANUEL to LAD
as opposed to a ELLSWORTH to LAD. After removing the papaverine soaked blanket with the ELLSWORTH inside, it had clumped up significantly and had excellent flow. There is also good visual flow in the LAD territory upon removal of the bulldog clamp following
bypass grafting, test dose cardioplegia was given down each distal and confirmed patency and hemostasis. Cardiac index initially started the case was 1.3 and improved to 1.8 without inotropic support. He was in a junctional rhythm after the
surgery and has a V wires for did not require pacing. No blood products were given. A posterior wall isolation was performed using the encompass clamp while on cardiopulmonary bypass, the ligament of Elder was also divided and the left atrial
appendage was ligated after the heart was fully arrested. Preoperative NINA demonstrated no thrombus or debris within the appendage and found it to be totally occlusive and flush the base postoperatively.
Specimen(s): Leaflets of the aortic valve.
Prosthesis:
1. 25 mm Colvin Inspiris Resilia aortic valve bioprosthesis, serial number: [id number]
2. 35mm left atrial appendage clip, serial #[id number].
Description of Procedure: The patient was taken to the operating room. Their identity and procedure to be performed were verified and they were positioned supine on the operating table. Induction via general anesthesia with endotracheal intubation
was performed and central venous access and arterial monitoring were inserted. A preoperative transesophageal echocardiogram was performed. The patient was then prepped and draped from chin to feet in a sterile fashion. A preoperative time-out was
performed with all members of the team present. A midline chest incision was performed along with median sternotomy. Simultaneous endoscopic access of the right lower extremity for saphenous vein harvest was obtained along with administration of an
initial 5,000 units of IV heparin. A RulTract sternal retractor was positioned to exposure the left internal mammary bed. The mammary was harvested in a semi skeletonized pedicle fashion and found to have fair flow. 2 medium clips were applied to
the distal end of the mammary after dividing it. It was wrapped in a papaverine soaked RayTec and replaced back into the left hemithorax. I then relocated the Rultract retractor to the right hemithorax and elevated that right side and harvested the
JESUS MANUEL in a skeletonized fashion leaving the distal end connected without cutting off its flow. This was done preemptively should I find that the ELLSWORTH was not usable mid case. The RulTract was exchanged for a median sternal retractor. The innominate
vein was isolated. Full heparinization was given (a total of 55,000 units). I created a pericardial well. The aortic cannulation site was chosen where it was soft, pliable, and free of calcium. Cannulation was performed with an arterial cannula in
the ascending aorta and a triple-stage venous cannula through the right atrial appendage. The arterial cannula line had an appropriate bounce and correlating pressures with test dosing. Next, a root vent/antegrade cannula was inserted into the
ascending aorta. The ACT was confirmed to be over 400 and retrograde autologous priming was performed before commencing cardiopulmonary bypass. At this point the SVC was away from the right pulmonary artery and the oblique sinuse was
developed. The encompass clamp was then placed underneath the SVC and IVC across the transverse and oblique sinuses, respectively. 3 successful pairs ablation were performed. The pulmonary artery was away from the aorta to facilitate a
clamp site. The aortic cross-clamp was placed after decreasing the flow on the bypass and mean arterial pressure. A total of 1.2L initial dose of antegrade Del-Nido cardioplegia solution was given and planned for re-dosing every 75 minutes as
necessary. There was rapid electro-mechanical arrest of the heart at 300 cc of cardioplegia. The left ventricle was observed for distention on echocardiogram and manual palpation and decompressed accordingly. Cold slush was placed into a sponge and
topically on the RV while we systemically cooled to 34 degrees centigrade.
I positioned the heart to expose the distal right coronary at the posterior descending artery. A makah blade was used to expose the coronary and perform the arteriotomy. Coronary Bailey scissors were used to enlarge the incision. The saphenous vein
was trimmed and beveled to an appropriate size. The distal anastomosis was performed using 7-0 prolene in an end-to-side fashion. Antegrade cardioplegia was administered into the graft. Appropriate hemostasis and flow were confirmed. The graft was
measured for length to the aorta and cut. The heart was rotated medially and the left atrial appendage was then ligated here. The ligament Elder was also divided using electrocautery. A suitable target on the mid/distal left anterior descending
was identified. We dissected and prepared the distal target in a similar fashion. We retrieved the ELLSWORTH from the chest and created a pericardial opening while being cognizant of the phrenic nerve to facilitate the course of the mammary. The distal
end of the mammary was prepped and incised on the underbelly with an I-knife. We verified orientation and length of the AYAKA and found brisk flow. An long rnvs-mo-[id number] anastomosis was created with a 8-0 prolene. We temporarily released the bulldog
clamp on the mammary to inspect flow. Perfusion to the LAD territory was visualized and hemostasis was confirmed with placement two 2 repair sutures. The bull clamp was replaced on the mammary. LV vent was then placed in the right superior
pulmonary vein into the LV.
Carbon dioxide was used to flood the field. I turned my attention to the aortic valve and manually identified the location of the right coronary take off. An aortotomy was made approximately 1.5cm above the sinotubular junction. The location of both
left and right coronary vessels were visualized in the root. The aortic valve was inspected and found to be heavily calcified. The leaflets were excised and sent for pathological assessment. The annulus was debrided of any calcium. The root and left
ventricular outflow tract were thoroughly irrigated to remove any debris. A total of 14, nonpledgeted 2-0 ethibond annular sutures were placed [id number] circumferentially. These were brought through the sewing cuff of the prosthetic valve which
as then parachuted into place. The left and right coronary ostia were visualized and were unobstructed by the valve. A Cor-Knot device was used to secure the annular sutures. The valve was inspected and was well seated. The aortotomy was
approximated with 4-0 prolene in two layers. The heart was filled and the root was distended with antegrade cardioplegia to make final assessment of graft length and orientation. I created 1 aortotomy using a #11 blade then a 4.0mm aortic punch
above the aortic suture line. The proximal anastomoses were created in an end-to-side fashion using 6-0 prolene. At the same time, we started to re-warm to 36.5 degrees centigrade. The bulldog clamp was removed from the mammary and temporary bipolar
ventricular pacing wires were placed on the base of the right ventricle along with temporary atrial pacing wires at the SVC right atrial junction. The patient was placed in a Trendelenburg position and flows on bypass were lowered. The aortic cross
clamp was removed and flows were slowly brought back up. The aortotomy appeared hemostatic. All bypass grafts were inspected and were free from kinking or twisting. The distal and proximal anastomoses appeared hemostatic. De-airing maneuvers were
performed. Transesophageal echocardiography revealed no paravalvular leak and appropriate prosthetic function. Once de-airing was satisfactory, the left ventricular and root vents were removed. After verifying acceptable parameters, we initiated
weaning from cardiopulmonary bypass. Once we were off cardiopulmonary bypass, the venous cannulas was clamped and removed. A test dose of protamine was administered and the patient was monitored for any adverse reaction before resuming protamine.
Once half of the protamine dose was delivered, pump suckers were turned off and the systolic blood pressure was lowered for aortic decannulation. The aortic cannula was removed and pursestrings were tied down. All cannulation sites were oversewn
with a 4-0 prolene. The aortic line, proximal, and distal coronary anastomoses were hemostatic. The mammary bed was inspected and hemostasis was confirmed. Once the mediastinum was hemostatic, a 19Fr Simone drain was placed in the left and right
pleural cavity and two 24Fr Simone drains were placed within the pericardium. The sternum was approximated with 4#7 single and 3 #8 double stainless steel wires. I ultimately left the JESUS MANUEL hanging with it's proximal and distal ends still connected to
maintain flow. Fascia was approximated with #1 vicryl suture. The subcutaneous, dermis and epidermis were closed in layers in a running fashion. The skin wound was cleansed and dressed.
All instrument, sponge, and needle counts were confirmed to be correct x 2 at the end of the operation. The patient was transferred to the cardiac intensive care unit in critical but stable condition.
I, Dr. Alex Carbajal, was present, scrubbed for, and performed all critical elements of this procedure.
Alex Carbajal MD, MS
Cardiothoracic Surgeon
[facility]
This operative dictation was created using the [employer] dictation system. Please excuse any grammatical, typographical, or 'sound alike' errors
[2025-06-23 12:22] LABS: B.E. - POC 0.9 mmol/L; Glucose - POC 88 mg/dl (70-99); HCO3 - POC 25 mmol/L (21-28); Hematocrit - POC 27 % PCV (42-52); Hemodilution- POC Yes; Hemoglobin Calculated - POC 9.1; Ionized Calcium - POC 1.28 mmol/L (1.15-1.33); Lactate - POC 2.42 mmol/L (0.36-0.75); O2 Saturation %Calculated-POC 99.9 % (94-98); PCO2 - POC 34 mmHg (35-48); PO2 - POC 299 mmHg (83-108); POC Comment POST; Potassium - POC 3.3 mmol/L (3.5-5.1); Sodium - POC 143 mmol/L (136-145); Specimen Type - POC Arterial; pH - POC 7.46 (7.35-7.45)
--- NOTE | 2025-06-23 12:36 | CON.INTV ---
Consultation
Consultation Request
Date/Time Consultation Requested: 06/23/2025 - 120
Date/Time Consultation Performed: 06/23/2025 - 2
Requesting Provider: Gali Henry NP
Performing Provider: Dr. De Souza
Reason for Consultation: s/p CABG + SAVR
Medical History
-
Chief Complaint: Elective SAVR + CABG x 2
History of Present Illness:
75-year-old male non-smoker with a past medical history of HLD, hypothyroidism, peripheral neuropathy, IBD, BPH, anxiety/depression, CAD w/ Hx of MA (2001) s/p angioplasty + stenting, and RLS who presents for elective SAVR + CABG. Patient known to
the cardiothoracic surgery service, with last visit on 06/14/[address] Carbajal. He has a history of PCI x 3 and has moderate aortic valve stenosis. He was hospitalized in May/June 25 for an NSTEMI. He was found to have regional WMA in the mid
anterior septal/inferior septal regions. Mean aortic valve gradient showed 27 mmHg with an CORRINA of 0.8 cm�. He is believed to have low-flow, low gradient moderate to severe aortic valve stenosis. Invasive mean gradient showed 26.4 mmHg in the
setting of mild�moderate insufficiency. He was recommended for surgical revascularization + surgical aortic valve replacement, which the patient agreed to. Today he underwent CABG x 2, modified left atrial maze, left atrial appendage exclusion and
surgical aortic valve replacement. There were no complications, and he was transferred to the CVICU postoperatively for further care. Broadcast Operations Director services consulted for additional management/recommendations.
When I saw the patient, he was resting in bed, intubated on SIMV at 12/550/40%/5, with PSV 5, with PIP 24 cmH2O, VTe 484 cc and breathing at 12 breaths/min. Heart rate 63, BP via A-line: 80/40, CO/CI: 3.36/1.67, respectively. Currently on Levophed
at 2 mcg/min and sedated on Precedex at 0.5 mcg/kg/hr.
PMHx: Hyperlipidemia, hypothyroidism, peripheral neuropathy, IBD, BPH, anxiety/depression, history of MA (2001) s/p angioplasty + stenting, restless leg syndrome
PSHx: Right rotator cuff repair, bone marrow donor (99 5), right shoulder RTC revision and humeral head chondroplasty (05/2022)
Past Medical History
Past Medical History: Other (Above as per HPI)
Past Surgical History: Other (Above as per HPI)
Social History
Tobacco: Non-smoker
Alcohol: Occasional (4 times a week)
Drug: None
Employment: Retired ([employer])
Family History
Family History: CAD (Father + sibling) and Diabetes (Mother)
Allergies / Home Medications
Allergies
Allergy/AdvReac Type Severity Reaction Status Date / Time
pollen extracts Allergy swollen Verified 06/16/25 12:52
sinus,
runny nose
- seasonal
Home Medications
�Medication �Instructions �Recorded �Confirmed �Last Taken �Type
desvenlafaxine succinate 100 mg 200 mg PO DAILY Mental health 11/30/12 06/23/25 06/23/25 04:30 History
tablet,extended release 24 hr
(Pristiq)
methylphenidate HCl 36 mg 36 mg PO DAILY Mental health 09/02/17 06/23/25 06/22/25 07:00 History
tablet,extended release 24 hr
(Concerta)
tamsulosin 0.4 mg capsule 0.4 mg PO DAILY Urinary issue 07/04/20 06/23/25 06/22/25 07:00 History
nitroglycerin 0.4 mg sublingual 0.4 mg sublingual [id number] PRN 11/22/21 06/23/25 06/01/25 18:30 Rx
tablet chest pain #25 tabs
bupropion HCl 300 mg 24 hr tablet, 300 mg PO DAILY Mental 01/25/23 06/23/25 06/22/25 07:00 History
extended release (Wellbutrin XL) Health/Anxiety
diltiazem HCl 180 mg capsule,24 180 mg PO DAILY Blood Pressure 06/01/25 06/23/25 06/19/25 07:00 History
hr,extended release
hydrochlorothiazide 12.5 mg capsule 12.5 mg PO DAILY Blood Pressure 06/01/25 06/23/25 06/22/25 07:00 History
isosorbide mononitrate 60 mg 60 mg PO DAILY Blood Pressure 06/01/25 06/23/25 06/19/25 07:00 History
tablet,extended release 24 hr
losartan 50 mg tablet 50 mg PO BID Blood Pressure 06/01/25 06/23/25 06/19/25 07:00 History
omega 2-dhu-cam-fish oil 1,200 mg 1 cap PO DAILY Supplement 06/01/25 06/23/25 06/14/25 07:00 History
(144 mg-216 mg) capsule (Fish Oil)
apixaban 5 mg tablet (Eliquis) 5 mg PO BID Blood Clot 06/23/25 06/23/25 06/18/25 20:30 History
Prevention/Tx
atorvastatin 80 mg tablet 80 mg PO QPM High Cholesterol 06/23/25 06/23/25 06/22/25 07:00 History
clopidogrel 75 mg tablet 75 mg PO DAILY Heart 06/23/25 06/23/25 06/16/25 05:30 History
Disease/Condition
Review of Systems
-
Unable to Obtain full review of systems at this time due to: Patient Intubation
Vitals / Labs / Diagnostic Testing
Vital Signs
Temp Pulse Resp BP Pulse Ox
96.5 F L 74 13 110/78 100
06/23/25 18:00 06/23/25 18:00 06/23/25 17:00 06/23/25 17:39 06/23/25 18:00
Lab Data
06/23/25 16:59
06/23/25 13:23
Laboratory Results
06/23/25 06/23/25
13:23 16:00
PT 17.2 H
INR 1.35
APTT 31.0
pH 7.39 Cancelled
pCO2 43 Cancelled
pO2 110 H Cancelled
HCO3 26.0 Cancelled
O2 Delivery Level Cancelled
Diagnostic Testing:
Physical Exam
-
HEENT: Normocephalic, Anicteric and Other (ETT in place)
Cardiovascular: S1/S2 and Peripheral Edema (negative)
Respiratory: Wheeze (negative), Rales (negative), Rhonchi (negative), Non-Labored Respirations, Other (Mechanical breath sounds heard bilaterally) and Other (Bilateral pleural chest tubes + mediastinal chest tubes x 2)
GI: Soft, Non Distended, Non Tender and Normal Bowel Sounds
Neurology: Other (Sedated)
Skin: Warm and Dry
General: Respiratory Distress (negative), Comfortable, Fever (negative) and Chills (negative)
Assessment
-
Assessment: 75-year-old male non-smoker with a past medical history of HLD, hypothyroidism, peripheral neuropathy, IBD, BPH, anxiety/depression, CAD w/ Hx of MA (2001) s/p angioplasty + stenting, and RLS who presents for elective SAVR + CABG.
Patient known to the cardiothoracic surgery service, with last visit on 06/14/[address] Carbajal. He has a history of PCI x 3 and has moderate aortic valve stenosis. He was hospitalized in June 25 for an NSTEMI. He was found to have regional
WMA in the mid anterior septal/inferior septal regions. Mean aortic valve gradient showed 27 mmHg with an CORRINA of 0.8 cm�. He is believed to have low-flow, low gradient moderate to severe aortic valve stenosis. Invasive mean gradient showed 26.4
mmHg in the setting of mild�moderate insufficiency. He was recommended for surgical revascularization + surgical aortic valve replacement, which the patient agreed to. On 06/23/2025, he underwent CABG x 2, modified left atrial maze, left atrial
appendage exclusion and surgical aortic valve replacement. There were no complications, and he was transferred to the CVICU postoperatively for further care. Broadcast Operations Director services consulted for additional management/recommendations.
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
Impression:
#Multivessel CAD involving ostial LAD s/p CABG x 2 (POD #0)
#Severe aortic valve stenosis (low-flow low gradient) s/p surgical aortic valve replacement (25 mm biological prosthesis � POD #0)
#Paroxysmal atrial fibrillation s/p modified left atrial MAZE with left atrial appendage exclusion with 35mm device (POD #0)
#Acute anemia due to above
#Hyperglycemia (mild) � HbA1c: 5.7 on 06/18/2025
#Recent NSTEMI
#Hypertension
#Hyperlipidemia
#Peripheral neuropathy
Plan:
Ventilator settings reviewed
FiO2 will be weaned to maintain SpO2 >90-94%
Minute ventilation will be adjusted
Arterial blood gases will be monitored
Spontaneous breathing trial will be attempted with hopeful extubation after anesthesia/sedation wear off
prn nebulized bronchodilators - not currently bronchospastic
Pulmonary artery catheter parameters will be followed
Pressors/antihypertensive/inotropes/diuretics will be provided as needed
Maintain MAP>65
Replete electrolytes with K>4, Mg>2
Monitor chest tube output (bilateral pleural chest tubes + mediastinal chest tubes x 2)
Monitor hemoglobin
Monitor platelet count and coags
Transfuse blood products as needed to maintain Hb>7g/dL, plt>50k (given post-operative status)
CT surgery managing chest tubes
Monitor blood sugar to maintain euglycemia with goal BG 110-140
Insulin drip per protocol
Aspiration precautions
VAP prevention protocol
DVT prophylaxis
Early nutrition
Early mobilization
Critical care statement: A total of 41 minutes of critical care time was provided for this patient today. This includes management of ventilator, spontaneous breathing trial, arterial blood gases, pressors, of unstable vital signs, evaluation of the
patient at bedside, reviewing the patient's pertinent medical records including radiographs, microbiology, laboratory evaluations, and discussion with primary team and critical care nursing.
[2025-06-23 13:24] LABS: Glucose - Point of Care 127 mg/dl (70-99)
[2025-06-23] MEDS: LR 250 ML IV ×3 (13:30→15:41)
[2025-06-23 13:36] LABS: B.E. 0.8 mmol/L; HCO3 26.0 mmol/L (21-28); O2 Saturation % 98.9 % (94-98); PCO2 43 mmHg (35-48); PO2 110 mmHg (83-108); Potassium 3.8 mMOL/L (3.5-5.1); Sodium 137 mMOL/L (136-145)
[2025-06-23 13:42] LABS: Hematocrit 29.5 % (39.0-52.0); Hemoglobin 10.2 g/dL (13.0-18.0); Platelet Count 154 10^3/uL (130-400)
[2025-06-23] MEDS: ANCEF 10 IV ×2 (13:42)
--- NOTE | 2025-06-23 13:42 | W.PN.CD ---
Addendum entered and electronically signed by Chao Jorgensen MD 06/23/25 15:48:
I saw and examined the patient.
The MEDICAL TECHNOLOGIST CLINICAL's note was reviewed and I agree with the note.
Comment:
75 y/o male with CAD with hx stenting, aortic stenosis, hypertension, dyslipidemia, depression, and PAF who is now s/p CABG/AVR. Doing well postop. Off pressors.
Physical exam: Intubated, opens eyes to voice and nods/shakes head to questions, RRR, no murmurs, no lower extremity edema, clear lungs
Continue routine postoperative care per CT surgery. Continue aspirin, statin, beta-shannon.
Original Note:
Today's Communication / Plan
-
Close post-op monitoring and care with weaning of drips and vent as tolerated per CT surgery/CVICU protocol
Impression / Plan
-
75 y/o male with CAD with hx stenting, aortic stenosis, hypertension, dyslipidemia, depression, and PAF who is now s/p CABG/AVR. Patient of Dr. Barnes.
Severe and CAD:
-s/p coronary artery bypass grafting x 2 (In situ ELLSWORTH to LAD, Ao to RSVG to RPDA) and bio-AVR, modified left atrial maze and COLE exclusion, Dr. Carbajal 06/23/25
-intubated and ventilated post-op
-on low dose Levophed
-post-op EKG and tele SR
-Devries, CT, pacer wire in place
-EF 60% per intra-op report
-ASA, statin, BB
PAF:
-stable in SR, procedures as above
-on dilt as OP, BB ordered here- follow telemetry
-resume OAC when able (on Eliquis as OP)
HTN:
-monitor post-op
HLD:
-continue statin
Physical Exam
Vital Signs/Labs
Vital Signs
Temp Pulse Resp BP Pulse Ox
97.3 F 64 12 137/73 99
06/23/25 13:39 06/23/25 13:30 06/23/25 13:30 06/23/25 05:51 06/23/25 13:39
06/22/25 06/23/25 06/24/25
06:59 06:59 06:59
Actual Weight 87 kg
PT 14.5 Sec (11.4-14.6) 06/18/25 12:12
INR 1.10 06/18/25 12:12
Physical Exam
Constitutional: No acute distress
Cardiovascular: Rhythm & rate is regular
Respiratory: Other (intubated and ventilated)
Neuro/Psych: Other (intubated/sedated)
Other: Skin (midsternal incision well-approximated)
Data Reviewed
-
Date of Service: June 23, 2025
EKG: Tracing Personally Visualized and interpreted (SR 63 BPM) and Other (SR)
Labs: Labs Reviewed by me
[2025-06-23] MEDS: TYLENOL PO (13:43)
[2025-06-23] MEDS: NSS 500 IV (13:43)
[2025-06-23] MEDS: KCL 50 IV ×2 (13:44→14:40)
[2025-06-23 13:54] LABS: INR 1.35; PT 17.2 Sec (11.4-14.6)
[2025-06-23 13:55] LABS: APTT 31.0 Sec (23.4-35.0)
[2025-06-23 13:59] LABS: Glucose - Point of Care 133 mg/dl (70-99)
[2025-06-23 14:00] LABS: Blood Urea Nitrogen 21 mg/dl (9-20); Estimated Creatinine Clearance 78 ml/min; Glucose 117 mg/dl (70-99); Magnesium 2.8 mg/dl (1.6-2.3)
--- NOTE | 2025-06-23 14:03 | CM ---
CM following for DC planning needs.
Patient in OR today for planned CT Surgery.
Reviewed initial assessment. Patient is independent of ADLS, lives with his in a 2 [address], 0 [place], 0 DME.
DC plan is anticipated for home w/ CT Transitional Care RN.
CM to follow.
--- NOTE | 2025-06-23 14:15 | PTCARENOTE ---
Patient received from CVOR s/p AVR/CABG x 2/MAZE/LAAL. NSR via cm, SaO2 @ 99% on ventilator, titrating FiO2 as able. RIJ Cordis/[place] catheter, L radial arterial lines present - leveled, flushed, and calibrated w/good waveforms returned.
epicardial A+V pacing wire to pulse generator, set to backup rate DDD 40bpm, no spikes noted. L and R pleural chest tubes to one pleurevac, mediastinal chest tubes x 2 Y-connected to separate collection chamber - both placed to -20cm suction w/no
air leaks noted. Devries catheter to gravity. Core temp 97.3, Leatha hugger applied. All procedural sites stable. Labs drawn, EKG performed, pcxr obtained. See work list for full assessment, interventions performed, and intravenous infusion rates and
titrations.
[2025-06-23 15:02] LABS: Glucose - Point of Care 166 mg/dl (70-99)
[2025-06-23] MEDS: PACERONE PO ×2 (15:22→22:17)
[2025-06-23] MEDS: NEURONTIN PO (15:22)
[2025-06-23 16:02] LABS: Glucose - Point of Care 176 mg/dl (70-99)
[2025-06-23 16:25] LABS: B.E. - POC 0.4 mmol/L; Blood Urea Nitrogen - POC 19 mg/dl (3-120); Chloride - POC 106 mmol/L (96-111); Creatinine - POC 0.86 mg/dl (0.3-1.0); Glucose - POC 171 mg/dl (70-99); HCO3 - POC 27 mmol/L (21-28); Hematocrit - POC 29 % PCV (42-52); Hemodilution- POC Yes; Hemoglobin Calculated - POC 9.7; Ionized Calcium - POC 1.17 mmol/L (1.15-1.33); Lactate - POC 1.10 mmol/L (0.36-0.75); O2 Saturation %Calculated-POC 99.1 % (94-98); PCO2 - POC 51 mmHg (35-48); PO2 - POC 150 mmHg (83-108); Potassium - POC 4.8 mmol/L (3.5-5.1); Sodium - POC 140 mmol/L (136-145); Specimen Type - POC Arterial; pH - POC 7.33 (7.35-7.45)
[2025-06-23] MEDS: CALCIUM GLUCONATE 100 IV (16:50)
--- NOTE | 2025-06-23 16:56 | RESPNOTE ---
16:55 Patient extubated and placed on 6L n.c. 97%
[2025-06-23 17:02] LABS: Glucose - Point of Care 158 mg/dl (70-99)
[2025-06-23 17:13] LABS: Hematocrit 31.8 % (39.0-52.0); Hemoglobin 10.9 g/dL (13.0-18.0); Platelet Count 152 10^3/uL (130-400)
--- NOTE | 2025-06-23 17:35 | PTCARENOTE ---
CPAP wean initiated. Patient sleepy but respirations wnl, good TV obtained. SaO2 100%. EPOC drawn, results discussed w/MARCK Carl. A-pacing initiated for CI <2. Patient extubated to 6lnc w/out incident, SaO2 100%.
[2025-06-23 18:02] LABS: Glucose - Point of Care 120 mg/dl (70-99)
[2025-06-23] MEDS: ROXICODONE 5 MG PO (18:08)
[2025-06-23] MEDS: LOW STRENGTH ASPIRIN 81 MG PO (18:09)
[2025-06-23] MEDS: LIPITOR PO (18:45)
[2025-06-23] MEDS: DILAUDID 0.25 MG IV (18:46)
[2025-06-23 19:09] LABS: Glucose - Point of Care 102 mg/dl (70-99)
--- NOTE | 2025-06-23 20:00 | PTCARENOTE ---
Received pt at 1900. Patient in bed, AOx3, appropriate, JIMENEZ, MSAS 1 for mild tremors. 100% A paced on CM, rate 74; AV wires to pacer box, see worklist for settings, no edema noted, pulses palpable throughout. CTx4 to -20 cm wall suction, no air
leak, tidaling, or crepitus noted. Devries cath in place draining clear yellow urine. Hypoactive BS, no nausea, tolerating sips and chips, c/o dry mouth, education provided. All surgical sites CDI and stable. RIJ Cordis/Adryan at 48, L radial art line,
PIV x1, all applicable lines leveled and zeroed. On Cardene and insulin. Call hart within reach, POC discussed with patient and at bedside, see work list for full patient assessment, family medicine chair, and gtt titrations.
[2025-06-23 20:11] LABS: Glucose - Point of Care 118 mg/dl (70-99)
[2025-06-23] MEDS: SENOKOT-S 1 TABLET PO (20:15)
[2025-06-23] MEDS: ANCEF 5 IV (20:15)
[2025-06-23] MEDS: FLEXERIL 5 MG PO (20:25)
[2025-06-23] MEDS: DILAUDID 0.5 MG IV (21:10)
[2025-06-23 22:09] LABS: Glucose - Point of Care 105 mg/dl (70-99)
[2025-06-23] MEDS: TYLENOL 1000 MG PO (22:11)
[2025-06-23] MEDS: NEURONTIN 100 MG PO (22:11)
[2025-06-24] VITALS (25 sets, daily range): BP systolic 93–142; BP diastolic 51–74; PULSE 73; O2SAT 96; BMI 29.9
[2025-06-24] LABS: Glucose - Point of Care 86 mg/dl (70-99)
--- NOTE | 2025-06-24 | PTCARENOTE ---
Addendum entered by Trisha Ann RN 06/24/25 06:20:
Leatha hugger applied and removed for patient intolerance, T closer to goal at 97.1 when the Leatha Hugger was removed. See worklist.
Original Note:
Cardene titrated per protocol, consulted with CVNP about increases, per PUMPMAN pt's pressures within goal at this time, no further orders. Cardene remains at 7.5
[2025-06-24] MEDS: DILAUDID 0.5 MG IV ×2 (00:53→04:16)
[2025-06-24] MEDS: ROXICODONE 5 MG PO ×4 (02:08→16:26)
[2025-06-24 02:09] LABS: Glucose - Point of Care 129 mg/dl (70-99)
--- NOTE | 2025-06-24 02:50 | W.PN.CT ---
Today's Communication / Plan
-
- POD #1
- Successfully extubated at 1730 hrs yesterday
- Doing well. No major events overnight
- Tele review: AV paced AAI @ 74. holding BB/amio for now
- Gtt's: nicardipine @ 7.5
- CI: 2.39 CO: 4.81
- CT 2med 45/190, L/R pleural 170/290 out in 12/24 hrs
- UOP 550/975 out in 12/24 hrs
- PW: A+V, now with intrinsic NSR restored, PW rate down to 62.
- wean down/off O2, IS use reinforced
- multimodal pain management
- Continue current meds: atorvastatin, Plavix, ASA
- continue outpatient meds: Wellburtin, Pristiq, Concerta, Flomax
- Bowel regimen
- OOB, ambulate as tolerated
Assessment / Plan
-
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
atrial maze [encompass clamp, posterior wall lesion set] with Dr. Carbajal on 06/23/2025 POD #1
NINA post op: Postop rhythm is now junctional. RV and LV function remain normal. LVEF 55% with no new RWMA. The AVR is well seated, no AI or perivalvular leaks noted. Max AV gradient 13 mmHg, mean is 6 mmHg. Mild central MR. Trace TR. PV
appears normal. LA appendage has been adequately clipped
HLD
PAF on Eliquis
Hypothyroid
Neuropathy
BPH
IBS
CAD s/p REAL
RLS
Acute junctional rhythm
Acute post op pain
Acute post op respiratory insufficiency
Subjective
Procedure
s/p surgical aortic valve replacement [Inspiris Resilia 25 mm biological prosthesis], Coronary artery bypass grafting x 2 (In situ ELLSWORTH to LAD, Ao to RSVG to RPDA), Left atrial appendage exclusion [35 mm device] ,Modified left atrial maze
[encompass clamp, posterior wall lesion set] with Dr. Carbajal on 06/23/2025
-
Date of Service: June 24, 2025
Objective Data
-
PT 17.2 Sec (11.4-14.6) H 06/23/25 13:23
INR 1.35 06/23/25 13:23
APTT 31.0 Sec (23.4-35.0) 06/23/25 13:23
Vital Signs
Vital Signs
Temp Pulse Resp BP Pulse Ox
97.7 F 74 15 129/64 95
06/24/25 02:00 06/24/25 02:00 06/24/25 02:00 06/24/25 02:00 06/24/25 02:00
CT Intake/Output/Weight
06/23/25 06/23/25 06/24/25
06:59 18:59 06:59
Intake Total 983.4 / 1510.4 527.0 / 1510.4
Output Total 690 / 1285 595 / 1285
Balance 293.4 / 225.4 -68.0 / 225.4
SaO2: 95
Physical Exam
-
General: Awake, Oriented and AOx3
Cardiovascular: Regular rate & rhythm, No Murmurs and Rub
Respiratory: Clear, Equal and Decreased Breath Sounds
Sternum: Stable
Incision: Clean, Dry and Intact
Extremities: No Edema and No Erythema
Data Reviewed
-
Lab Results: Results Reviewed
Medications: Active Meds Reviewed
Chest X-Ray: Report Reviewed
ECG: Report Reviewed
[2025-06-24] MEDS: CARDENE 200 IV (02:57)
[2025-06-24] MEDS: ANCEF 5 IV ×2 (03:02→12:12)
--- NOTE | 2025-06-24 04:00 | PTCARENOTE ---
Pain management, see MAR. Barboza continued at 7.5 per CVNP. Patient sleeping between care, arouse to voice, assessment of needs ongoing.
[2025-06-24 04:07] LABS: Glucose - Point of Care 106 mg/dl (70-99)
[2025-06-24 04:11] LABS: Hematocrit 30.7 % (39.0-52.0); Hemoglobin 10.7 g/dL (13.0-18.0); Mean Corp Hgb Conc. 34.9 g/dL (33.0-37.0); Mean Corpuscular Volume 89.8 fL (80.0-94.0); Platelet Count 161 10^3/uL (130-400); Red Cell Dist. Width 13.8 % (11.5-14.5)
[2025-06-24 04:40] LABS: Blood Urea Nitrogen 25 mg/dl (9-20); Calcium 8.4 mg/dl (8.4-10.2); Carbon Dioxide 27 mmol/L (22-30); Chloride 110 mmol/L (98-107); Estimated Creatinine Clearance 90 ml/min; Glucose 103 mg/dl (70-99); Magnesium 2.0 mg/dl (1.6-2.3); Potassium 4.0 mmol/L (3.5-5.1); Sodium 138 mmol/L (135-145); eGFR > 60.00
[2025-06-24] MEDS: TYLENOL 1000 MG PO ×3 (05:57→21:53)
[2025-06-24 06:07] LABS: Glucose - Point of Care 98 mg/dl (70-99)
[2025-06-24] MEDS: FLEXERIL 5 MG PO (07:25)
[2025-06-24] MEDS: LIDOCAINE 4% PATCH 1 PATCH TOPICAL (07:25)
[2025-06-24] MEDS: NEURONTIN 100 MG PO ×3 (07:25→21:54)
[2025-06-24] MEDS: FLOMAX 0.4 MG PO (07:25)
[2025-06-24] MEDS: WELLBUTRIN XL (24 hour extended release) 300 MG PO (07:25)
[2025-06-24] MEDS: BACTROBAN 2% OINTMENT 1 APPLIC NASAL ×2 (07:26→19:49)
--- NOTE | 2025-06-24 07:39 | PTCARENOTE ---
Assumed care of patient from table games shift manager RN. AAO x 3. C/o pain, requesting 'something faster' than he was given by table games shift manager. Pain medication as appropriate. RT IJ cordis with swan @ 48 cm. Lt radial A line transducing. Lines leveled,
recalibrated and flushed. Cardene and insulin infusing , see flow sheet for totals/titrations. SR on monitor 70 's, AV wires to back up AAI 60. No pacing noted at present. 4 L NC 93-94%, encouraged to take deep breaths. IS to 500. Chest tubes x
4 to - 20 cm suction. No air leak or crepitus noted. Abdomen soft and non tender. Devries draining clear yellow urine. Surgical sites c,d,i. Pulses palpable. Plan for day discussed.
--- NOTE | 2025-06-24 07:46 | W.PN.ANS.POP ---
Anesthesia Post Operative
- Anesthesia Post Op Note
Vital Signs Stable-See Nursing Note: Yes
Airway Patent: Yes
Adequate Pain Control: Yes
Change in Mental Status: No
Current Postoperative Nausea & Vomiting: No
Anesthesia Complications: No
General Anesthetic Recall: No
Unplanned Admission: No
Post Op Hydration Adequate: Yes
--- NOTE | 2025-06-24 07:47 | W.PN.CD ---
Today's Communication / Plan
-
doing well
pleuritic CP, encourage IS
routine post-op management
Impression / Plan
-
75 y/o male with CAD with hx stenting, aortic stenosis, hypertension, dyslipidemia, depression, and PAF who is now s/p CABG/AVR. Patient of Dr. Barnes.
Severe and CAD s/p CABG/AVR:
-s/p coronary artery bypass grafting x 2 (In situ ELLSWORTH to LAD, Ao to RSVG to RPDA) and bio-AVR, modified left atrial maze and COLE exclusion, Dr. Carbajal 06/23/25
-extubated, off vasopressors
-post-op EKG and tele SR
-encourage IS
-CT, pacer wire in place
-EF 55% per intra-op report
-cont. ASA, Plavix, statin
PAF:
-stable in SR, procedures as above
-on dilt as OP, BB ordered here- follow telemetry
-amio for post op Afib prevention per CT surgery
-resume OAC when able (on Eliquis as OP)
HTN:
-monitor post-op
HLD:
-continue statin
Physical Exam
Vital Signs/Labs
Vital Signs
Temp Pulse Resp BP Pulse Ox
36.8 C 75 17 124/53 93
06/24/25 07:00 06/24/25 07:15 06/24/25 07:15 06/24/25 07:00 06/24/25 07:15
06/23/25 06/24/25 06/25/25
06:59 06:59 06:59
Actual Weight 90.4 kg
06/24/25 04:04
06/24/25 04:04
PT 17.2 Sec (11.4-14.6) H 06/23/25 13:23
INR 1.35 06/23/25 13:23
APTT 31.0 Sec (23.4-35.0) 06/23/25 13:23
Magnesium 2.0 mg/dl (1.6-2.3) 06/24/25 04:04
Physical Exam
Constitutional: Comfortable
Cardiovascular: Rhythm & rate is regular
Respiratory: Respiratory effort normal
Neuro/Psych: AO x 3
Data Reviewed
-
Date of Service: June 24, 2025
Medical Decision Making: Reviewed Test Results
Labs: Labs Reviewed by me
[2025-06-24 08:07] LABS: Glucose - Point of Care 96 mg/dl (70-99)
[2025-06-24] MEDS: PLAVIX 75 MG PO (08:23)
[2025-06-24] MEDS: LOPRESSOR 12.5 MG PO (08:23)
[2025-06-24] MEDS: PROTONIX 40 MG PO (08:23)
[2025-06-24] MEDS: MAGNESIUM OXIDE 500 MG PO ×2 (08:23→19:49)
[2025-06-24] MEDS: PACERONE 200 MG PO ×3 (08:23→21:54)
[2025-06-24] MEDS: LOW STRENGTH ASPIRIN 81 MG PO (08:23)
[2025-06-24] MEDS: SENOKOT-S 1 TABLET PO ×2 (08:23→19:49)
--- NOTE | 2025-06-24 08:23 | W.PN.INTV ---
Today's Communication / Plan
Recommendations
Up OOB as tolerated
Encourage incentive spirometer
Continue weaning down supplemental O2, while keeping SpO2 >90-94%
If saturations remain <96% on room air at rest, then please check ambulatory pulse oximetry prior to discharge
Pain control
Goal BG 110-140 mg/dL
Removal of chest tubes per CT surgery team
Patient being downgraded to CVICU�telemetry status today. Once downgraded, our service will sign off. Please call back with any questions or concerns.
Assessment
-
Assessment: 75-year-old male non-smoker with a past medical history of HLD, hypothyroidism, peripheral neuropathy, IBD, BPH, anxiety/depression, CAD w/ Hx of ID (2001) s/p angioplasty + stenting, and RLS who presents for elective SAVR + CABG.
Patient known to the cardiothoracic surgery service, with last visit on 06/14/[address] Carbajal. He has a history of PCI x 3 and has moderate aortic valve stenosis. He was hospitalized in June 25 for an NSTEMI. He was found to have regional
WMA in the mid anterior septal/inferior septal regions. Mean aortic valve gradient showed 27 mmHg with an CORRINA of 0.8 cm�. He is believed to have low-flow, low gradient moderate to severe aortic valve stenosis. Invasive mean gradient showed 26.4
mmHg in the setting of mild�moderate insufficiency. He was recommended for surgical revascularization + surgical aortic valve replacement, which the patient agreed to. On 06/23/2025, he underwent CABG x 2, modified left atrial maze, left atrial
appendage exclusion and surgical aortic valve replacement. There were no complications, and he was transferred to the CVICU postoperatively for further care. Creche Attendant services consulted for additional management/recommendations.
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
Impression:
#Multivessel CAD involving ostial LAD s/p CABG x 2 (POD #1)
#Severe aortic valve stenosis (low-flow low gradient) s/p surgical aortic valve replacement (25 mm biological prosthesis � POD #1)
#Paroxysmal atrial fibrillation s/p modified left atrial MAZE with left atrial appendage exclusion with 35mm device (POD #1)
#Acute anemia due to above
#Hyperglycemia (mild) � HbA1c: 5.7 on 06/18/2025
#Recent NSTEMI
#Hypertension
#Hyperlipidemia
#Peripheral neuropathy
Plan:
Patient successfully extubated to nasal cannula on 06/23/2025; now currently on 4 L/min nasal cannula, saturating 93-94%
Continue weaning down supplemental O2 flow rate to maintain SpO2 >90-94%
prn nebulized bronchodilators - not currently bronchospastic
Maintain MAP>65
Replete electrolytes with K>4, Mg>2
Monitor chest tube output (bilateral pleural chest tubes to be removed today; mediastinal chest tubes x 2)
Monitor hemoglobin
Monitor platelet count and coags
Transfuse blood products as needed to maintain Hb>7g/dL, plt>50k (given post-operative status)
CT surgery managing chest tubes
Monitor blood sugar to maintain euglycemia with goal BG 110-140
Insulin drip now off; recommend ISS to maintain BG at goal as above
Aspiration precautions
DVT prophylaxis
Early nutrition
Early mobilization
Patient being downgraded to CVICU�telemetry status today. Once downgraded, our service will sign off. Please call back with any questions or concerns, and thank you for allowing our service to be involved in the care of this patient.
Total time spent today was 57 minutes for this encounter. Time includes reviewing laboratory test/imaging results, reviewing pertinent medical records, obtaining and reviewing medical history, performing an appropriate exam, ordering medications,
tests and procedures. Time also includes documentation of this encounter, coordinating patient care and communicating with other healthcare professionals. Total time does not include separately billed tests performed on this date of service.
Subjective Dataa
Subjective Data
Date of Service:
Date of Service: June 24, 2025
Chief Complaint: Creche Attendant Follow Up
Subjective:
Patient was seen and evaluated this morning. Currently on 4 L/min nasal cannula. Chest pain had persisted overnight, causing poor sleep, although chest pain is a little bit better this morning especially with pain medication (oxycodone). Current
BP 142/65, and he is saturating 93%, pulse rate 82.
Review of Systems
General: Other (Negative unless mentioned above)
Objective Data
Data Reviewed
Vital Signs / I&O / Oxygen:
Vital Signs
Temp Pulse Resp BP Pulse Ox
98.2 F 76 18 135/57 94
06/24/25 07:00 06/24/25 08:45 06/24/25 08:45 06/24/25 08:00 06/24/25 09:03
Intake and Output
06/23/25 06/24/25 06/25/25
06:59 06:59 06:59
Intake Total 1914.6 / 1914.6 328.3 / 328.3
Output Total 1505 / 1505 50 / 50
Balance 409.6 / 409.6 278.3 / 278.3
SaO2 [CPAP] 100
SaO2 [SIMV] 99
SaO2 94
Nasal Cannula flow liters per 4
minute
Physical Exam
General: Respiratory Distress (negative), Comfortable, Chills (negative) and Sweats (negative)
HEENT: Normocephalic, Anicteric and Other (R-IJ cordis)
Cardiovascular: S1-S2, Rub (present) and Peripheral Edema (negative)
Respiratory: Wheeze (negative), Crackles (negative), Rhonchi (negative), Non-Labored Respirations and Stridor (negative)
GI: Soft, Non Distended, Non Tender and Normal Bowel Sounds
Neurology: AO x 3 and Tremors (negative)
Skin: Warm, Dry, Cyanosis (negative) and Jaundice (negative)
Labs/Micro/Reports
Lab Data
06/24/25 04:04
06/24/25 04:04
Laboratory Results
06/23/25 06/23/25
13:23 16:00
PT 17.2 H
INR 1.35
APTT 31.0
pH 7.39 Cancelled
pCO2 43 Cancelled
pO2 110 H Cancelled
HCO3 26.0 Cancelled
O2 Delivery Level Cancelled
--- NOTE | 2025-06-24 09:44 | PTCARENOTE ---
LT radial A line removed, hemostasis achieved, with manual pressure. RT IJ swan leonila also removed at this time per CLERICAL STOCK INSPECTOR order. Devries cath removed. Pt provided with urinal.
[2025-06-24 10:13] LABS: Glucose - Point of Care 105 mg/dl (70-99)
[2025-06-24 11:57] LABS: Glucose - Point of Care 106 mg/dl (70-99)
[2025-06-24] MEDS: NSS IV (12:17)
--- NOTE | 2025-06-24 12:19 | PTCARENOTE ---
Resting in bed, after being up in chair x 1 hour. VSS. Pain well managed at present. Assessment otherwise unchanged from prior.
[2025-06-24] MEDS: FERRLECIT 110 MG IV (14:11)
--- NOTE | 2025-06-24 14:51 | CM ---
CM following for DC planning needs.
Patient POD#1.
Antic. DC plan is for home w/ CT Transitional Care RN.
CM to cont. to follow.
[2025-06-24] MEDS: LIPITOR 80 MG PO (15:46)
--- NOTE | 2025-06-24 16:16 | PTCARENOTE ---
Ambulated to bathroom to void. some dizziness after. Recovered with sitting. Able to void, an unmeasured amount in toilet. Bladder scanned for 129 ml urine. Will monitor closely. VSS. Assessment otherwise unchanged from prior.
[2025-06-24] MEDS: REMOVE LIDOCAINE PATCH 1 PATCH REMOVE (19:49)
[2025-06-24] MEDS: LOPRESSOR PO (19:53)
--- NOTE | 2025-06-24 20:00 | PTCARENOTE ---
Resumed care of the patient at 1900. Patient helped into the bathroom with mild assistance to void. AOx3. SR on CM, rate 70's; AV wires insulated, no edema noted, pulses palpable throughout. CTx2 to -20 cm wall suction, no air leak, tidaling, or
crepitus noted. Voided amrit urine into the toilet without difficulty. Hypoactive BS, abd ANT, no nausea. All surgical sites stable. RIJ Cordis, PIV x1. Call hart within reach, POC discussed, see work list for full patient assessment, interventions,
and medical economics consultant.
[2025-06-25] VITALS (35 sets, daily range): BP systolic 78–130; BP diastolic 36–78; PULSE 78–79; BMI 30.4
--- NOTE | 2025-06-25 00:01 | PTCARENOTE ---
Patient attempted to ambulate to the bathroom to void with assist of RN; reported some dizziness upon standing. Patient became orthostatic, placed back into bed safely and had a brief <5 second moment of unresponsiveness with eyes open. Assisted
with urinal while in bed, voided without difficulty. Education provided, BP relatively stable, CVPA at bedside to assess, albumin 5% pending.
[2025-06-25] MEDS: ALBUMIN 5% 250 IV (00:14)
[2025-06-25] MEDS: ROXICODONE 5 MG PO ×2 (02:07→22:47)
--- NOTE | 2025-06-25 04:00 | PTCARENOTE ---
Pain management. Patient voiding frequently; PVR 277 - CVPA aware, patient states he has retention at baseline. No discomfort or symptoms. VSS, patient remains in bed.
[2025-06-25 04:51] LABS: Hematocrit 26.5 % (39.0-52.0); Hemoglobin 8.9 g/dL (13.0-18.0); Mean Corp Hgb Conc. 33.6 g/dL (33.0-37.0); Mean Corpuscular Volume 91.7 fL (80.0-94.0); Platelet Count 121 10^3/uL (130-400); Red Cell Dist. Width 13.9 % (11.5-14.5)
[2025-06-25 05:11] LABS: Blood Urea Nitrogen 23 mg/dl (9-20); Calcium 8.3 mg/dl (8.4-10.2); Carbon Dioxide 30 mmol/L (22-30); Chloride 100 mmol/L (98-107); Estimated Creatinine Clearance 78 ml/min; Glucose 140 mg/dl (70-99); Magnesium 2.3 mg/dl (1.6-2.3); Potassium 4.6 mmol/L (3.5-5.1); Sodium 132 mmol/L (135-145); eGFR > 60.00
[2025-06-25] MEDS: TYLENOL 1000 MG PO ×3 (05:25→22:10)
[2025-06-25] MEDS: DILAUDID 0.25 MG IV (05:26)
--- NOTE | 2025-06-25 06:42 | W.PN.CT ---
Today's Communication / Plan
-
-pod #2
-pt was orthostatic twice overnight with brief syncope after trying to stand up to void. He was helped back to bed by nurses and regained consciousness within 1 min of being supine. Gave 1 Albumin and started Midodrine 5 tid.
-will hold BB and Amio
-has urinary retention (post void residual was 277), which pt says is chronic. Currently, he is on Flomax
-CT outputs: 2 meds 95/215 in 12/24 hrs
-follow Na - 132 today (from 138)
-Cr is stable - 0.8
- follow Hg - 8.9 today (from 10.7)
-encourage IS, OOB as tolerated
Assessment / Plan
-
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
atrial maze [encompass clamp, posterior wall lesion set] with Dr. Carbajal on 06/23/2025 POD #2
NINA post op: Postop rhythm is now junctional. RV and LV function remain normal. LVEF 55% with no new RWMA. The AVR is well seated, no AI or perivalvular leaks noted. Max AV gradient 13 mmHg, mean is 6 mmHg. Mild central MR. Trace TR. PV
appears normal. LA appendage has been adequately clipped
HLD
PAF on Eliquis
Hypothyroid
Neuropathy
BPH
IBS
CAD s/p REAL
RLS
Acute junctional rhythm
Acute post op pain
Acute post op pulmonary insufficiency/atelectasis
Acute postop blood loss anemia
Acute postop thrombocytopenia
Acute postop hyponatremia
Discussed patient care with: Nursing and Care Team
Subjective
Procedure
s/p surgical aortic valve replacement [Inspiris Resilia 25 mm biological prosthesis], Coronary artery bypass grafting x 2 (In situ ELLSWORTH to LAD, Ao to RSVG to RPDA), Left atrial appendage exclusion [35 mm device] ,Modified left atrial maze
[encompass clamp, posterior wall lesion set] with Dr. Carbajal on 06/23/2025
-
Date of Service: June 25, 2025
Objective Data
-
Lab Results
06/25/25 04:32
06/25/25 04:32
PT 17.2 Sec (11.4-14.6) H 06/23/25 13:23
INR 1.35 06/23/25 13:23
APTT 31.0 Sec (23.4-35.0) 06/23/25 13:23
Vital Signs
Vital Signs
Temp Pulse Resp BP Pulse Ox
98.8 F 78 18 123/66 98
06/25/25 00:06 06/25/25 05:26 06/25/25 00:06 06/25/25 05:26 06/25/25 04:00
CT Intake/Output/Weight
06/24/25 06/24/25 06/25/25
06:59 18:59 06:59
Intake Total 931.2 / 1914.6 1239.9 / 1609.9 370 / 1609.9
Output Total 815 / 1505 270 / 1165 895 / 1165
Balance 116.2 / 409.6 969.9 / 444.9 -525 / 444.9
SaO2: 98
Physical Exam
-
General: Awake and AOx3
Cardiovascular: Regular rate & rhythm, No Murmurs and Rub
Respiratory: Decreased Breath Sounds
Sternum: Stable
Incision: Clean, Dry and Intact
Extremities: No Edema (2+ DPs b/l)
Abdomen: soft, nontender, nondistended, + decreased bowel sounds. + burping, little flatus, denies nausea
Data Reviewed
-
Lab Results: Results Reviewed
Medications: Active Meds Reviewed
Chest X-Ray: Report Reviewed and Image Reviewed
ECG: Report Reviewed and Image Reviewed
[2025-06-25] MEDS: NON-FORMULARY ITEM 200 MG PO (07:48)
[2025-06-25] MEDS: NEURONTIN 100 MG PO (07:49)
[2025-06-25] MEDS: LIDOCAINE 4% PATCH 1 PATCH TOPICAL (07:49)
[2025-06-25] MEDS: BACTROBAN 2% OINTMENT 1 APPLIC NASAL ×2 (07:49→20:30)
[2025-06-25] MEDS: FLEXERIL 5 MG PO (07:50)
[2025-06-25] MEDS: LOW STRENGTH ASPIRIN 81 MG PO (07:50)
[2025-06-25] MEDS: PLAVIX 75 MG PO (07:50)
[2025-06-25] MEDS: WELLBUTRIN XL (24 hour extended release) 300 MG PO (07:50)
[2025-06-25] MEDS: FLOMAX 0.4 MG PO (07:50)
[2025-06-25] MEDS: PROTONIX 40 MG PO (07:50)
[2025-06-25] MEDS: SENOKOT-S 1 TABLET PO ×2 (07:50→20:30)
[2025-06-25] MEDS: MAGNESIUM OXIDE 500 MG PO ×2 (07:50→20:30)
--- NOTE | 2025-06-25 08:00 | PTCARENOTE ---
Assumed care of patient from security shift supervisor RN. AAO x3 . ORthostatic VS obtained. Pt with significant drop while standing, c/o dizziness. Recovered when sitting down. Relayed to CT NEGATIVE RETOUCHER. SR on monitor. Epicardial wires insulated. 2 L NC 96% pt
92% on room air while sitting in chair. Chest tubes x 2 to neg 20 cm suction. No air leak or crepitus noted. abdomen with positive bowel sounds. Surgical sites c,d,i. Pulses palpable. Plan for day discussed.
--- NOTE | 2025-06-25 09:31 | PTCARENOTE ---
Pt rang call hart to get back to bed. Assist x 2, tolerated initial transfer but then fainted and unresponsive briefly. Pt recovered quickly with laying flat. VSS after. CT SLAB INSPECTOR notified.
--- NOTE | 2025-06-25 10:02 | W.PN.CD ---
Today's Communication / Plan
-
check ECG
start colchicine
check focused echo
Impression / Plan
-
75 y/o male with CAD with hx stenting, aortic stenosis, hypertension, dyslipidemia, depression, and PAF who is now s/p CABG/AVR. Patient of Dr. Barnes.
Severe and CAD s/p CABG/AVR:
-s/p coronary artery bypass grafting x 2 (In situ ELLSWORTH to LAD, Ao to RSVG to RPDA) and bio-AVR, modified left atrial maze and COLE exclusion, Dr. Carbajal 06/23/25
-extubated, off vasopressors
-post-op EKG and tele SR
-encourage IS
-CT, pacer wire in place
-EF 55% per intra-op report
-cont. ASA, Plavix, statin
PAF:
-stable in SR, procedures as above
-on dilt as OP, BB ordered here- follow telemetry
-amio for post op Afib prevention per CT surgery
-resume OAC when able (on Eliquis as OP)
CP:
-Pleuritic, slight st up diffusely on ecg yesterday
-seems c/w pericarditis
-check ECG -D/w CTNP
-add colchicine--D/w CTNP
OH:
-holding agents
-given OH and cp will update a focused echo
HTN:
-monitor post-op
HLD:
-continue statin
Subj:
He is having 5/10 pleuritic cp, improving
Physical Exam
Vital Signs/Labs
Vital Signs
Temp Pulse Resp BP Pulse Ox
97.8 F 80 16 102/62 92
06/25/25 07:54 06/25/25 08:30 06/25/25 07:54 06/25/25 08:27 06/25/25 08:59
06/24/25 06/25/25 06/26/25
06:59 06:59 06:59
Actual Weight 199 lb 4.766 oz 202 lb 13.204 oz
06/25/25 04:32
06/25/25 04:32
PT 17.2 Sec (11.4-14.6) H 06/23/25 13:23
INR 1.35 06/23/25 13:23
APTT 31.0 Sec (23.4-35.0) 06/23/25 13:23
Magnesium 2.3 mg/dl (1.6-2.3) 06/25/25 04:32
Physical Exam
Constitutional: No acute distress
Cardiovascular: Rhythm & rate is regular, Pedal edema is absent, JVD pressure is normal and Systolic murmur absent
Respiratory: Respiratory effort normal, Lungs clear to auscul., Wheeze Absent, Crackles Absent and Rhonchi Absent
Neuro/Psych: AO x 3
Data Reviewed
-
Date of Service: June 25, 2025
Medical Decision Making: Review of Case with other Provider (CTNP: start colchine, get ecg)
[2025-06-25] MEDS: NSS IV (11:18)
--- NOTE | 2025-06-25 12:00 | PTCARENOTE ---
Mediastinal chest tubes removed after 1 hour of bed rest post epicardial wire removal. PT tolerated w/o issue. Afternoon midodrine administered. Will assist oob in 1 hour. VSS. Assessment otherwise unchanged from prior.
--- NOTE | 2025-06-25 13:30 | PTCARENOTE ---
Assist x 1 oob to chair. Pt dizzy with initial standing but able to ambulate to chair w/o issue. BP in 90's systolic once sitting.
[2025-06-25] MEDS: FERRLECIT 110 MG IV (13:38)
--- NOTE | 2025-06-25 15:39 | PTCARENOTE ---
1500 Pt assist x 1 back to bed from chair. C/o dizziness and once again hypotensive 80 systolic. Recovered on own w/o intervention stayed awake and alert this time. CT BEEF SPECIALIST informed. Midodrine order addressed. Assessment otherwise unchanged from
prior.
--- NOTE | 2025-06-25 16:18 | PTCARENOTE ---
Laying in bed, denies complaint. Pain better without chest tubes. VSS. Assessment otherwise unchanged from prior.
--- NOTE | 2025-06-25 16:35 | CM ---
dc plans remain home with when medically stable and f/u visit with the ct transitional care nurses after dc
[2025-06-25] MEDS: LIPITOR 80 MG PO (16:55)
--- NOTE | 2025-06-25 19:40 | PTCARENOTE ---
Report received from MAXINE Luna. Pt assessed. VS done. Pt lying in bed. Normotensive. In SR, rate 70's. No rub audible. For pulse and wound assessment, see flowsheets. Oriented x 4. Speech clear. Equal strength x 4. Flat affect. Pt on 2L/NC. Sats
97%. BBS present. Decreased to B bases. IS peak 1000 mls. Nonproductive moist cough at times. Belly soft, nontender. Normoactive bs x 4. Passing flatus at times. No c/o nausea. Voids clear, yellow urine in small amounts, 175-225 mls/time. Holding
amiodarone and metoprolol per order. Omgoing plan of care.
[2025-06-25] MEDS: REMOVE LIDOCAINE PATCH 1 PATCH REMOVE (20:29)
--- NOTE | 2025-06-25 21:45 | PTCARENOTE ---
Pt c/o sternal pain and tenderness 06/10. Roxicodone 5 mg given for pain. Pt sat up to sitting position in bed. Practicing IS. While coughing, pt became dizzy and felt presyncopal. BP 94 systolic. Pt flatter in bed, 20 degrees-HOB. BP remained
normotensive after pt flatter in bed. Ongoing plan of care.
[2025-06-26] VITALS (36 sets, daily range): BP systolic 83–160; BP diastolic 50–85; PULSE 75; O2SAT 97; BMI 30.4
[2025-06-26] MEDS: FLEXERIL 5 MG PO ×3 (00:10→22:25)
--- NOTE | 2025-06-26 00:25 | PTCARENOTE ---
Pt with continued pain to sternum with coughing. Flexeril 5 mg po given. Experiencing dizziness with coughing. Remains Normotensive at present time. See VS.
--- NOTE | 2025-06-26 03:45 | PTCARENOTE ---
Pt sleeping. Remains Normotensive. SR 90's. On 2L/NC. Sats 97-98%.
[2025-06-26 05:46] LABS: Hematocrit 23.7 % (39.0-52.0); Hemoglobin 8.0 g/dL (13.0-18.0); Mean Corp Hgb Conc. 33.8 g/dL (33.0-37.0); Mean Corpuscular Volume 90.5 fL (80.0-94.0); Platelet Count 110 10^3/uL (130-400); Red Cell Dist. Width 14.1 % (11.5-14.5)
[2025-06-26 05:52] LABS: Blood Urea Nitrogen 21 mg/dl (9-20); Calcium 8.3 mg/dl (8.4-10.2); Carbon Dioxide 30 mmol/L (22-30); Chloride 105 mmol/L (98-107); Estimated Creatinine Clearance 118 ml/min; Glucose 116 mg/dl (70-99); Magnesium 2.4 mg/dl (1.6-2.3); Potassium 4.2 mmol/L (3.5-5.1); Sodium 135 mmol/L (135-145); eGFR > 60.00
[2025-06-26] MEDS: TYLENOL 1000 MG PO ×3 (06:15→22:25)
--- NOTE | 2025-06-26 06:21 | PTCARENOTE ---
Labs drawn and sent this am. CXR done. VS done q 1 hr. 0600 BP 123/70. Midodrine 10 mg po given after discussed with FANNY Rangel. Pt turned, back and groin washed. Pad changed. Remains in SR. On 2L/NC. Sats 97-99%/ IS done with pt. Peak IS 1000 mls.
--- NOTE | 2025-06-26 07:47 | W.PN.CT ---
Today's Communication / Plan
-
-pod #3
-no issues overnight
-on Midodrine for orthostasis. Holding Amio and BB
-Colchicine for pericarditis
-Echo 06/25: EF 55-60%, no pericardial effusion
-wean off O2 as tolerated - pOx 98% on 2L
-encourage IS, OOB
Assessment / Plan
-
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
atrial maze [encompass clamp, posterior wall lesion set] with Dr. Carbajal on 06/23/2025 POD #3
NINA post op: Postop rhythm is now junctional. RV and LV function remain normal. LVEF 55% with no new RWMA. The AVR is well seated, no AI or perivalvular leaks noted. Max AV gradient 13 mmHg, mean is 6 mmHg. Mild central MR. Trace TR. PV
appears normal. LA appendage has been adequately clipped
HLD
PAF on Eliquis
Hypothyroid
Neuropathy
BPH
IBS
CAD s/p REAL
RLS
Acute junctional rhythm
Acute post op pain
Acute post op pulmonary insufficiency/atelectasis
Acute postop blood loss anemia
Acute postop thrombocytopenia
Acute postop hyponatremia
Acute postop orthostasis
Discussed patient care with: Nursing and Care Team
Subjective
Procedure
s/p surgical aortic valve replacement [Inspiris Resilia 25 mm biological prosthesis], Coronary artery bypass grafting x 2 (In situ ELLSWORTH to LAD, Ao to RSVG to RPDA), Left atrial appendage exclusion [35 mm device] ,Modified left atrial maze
[encompass clamp, posterior wall lesion set] with Dr. Carbajal on 06/23/2025
-
Date of Service: June 26, 2025
Objective Data
-
Lab Results
06/26/25 05:21
06/26/25 05:21
PT 17.2 Sec (11.4-14.6) H 06/23/25 13:23
INR 1.35 06/23/25 13:23
APTT 31.0 Sec (23.4-35.0) 06/23/25 13:23
Vital Signs
Vital Signs
Temp Pulse Resp BP Pulse Ox
98.1 F 73 15 123/70 98
06/26/25 04:00 06/26/25 06:15 06/26/25 04:00 06/26/25 06:15 06/26/25 04:00
CT Intake/Output/Weight
06/25/25 06/26/25 06/26/25
18:59 06:59 18:59
Intake Total 920 / 1040 120 / 1040
Output Total 1400 / 1800 400 / 1800
Balance -480 / -760 -280 / -760
SaO2: 98
Physical Exam
-
General: Awake and AOx3
Cardiovascular: Regular rate & rhythm, No Murmurs and Rub
Respiratory: Decreased Breath Sounds
Sternum: Stable
Incision: Clean, Dry and Intact
Abdomen: soft, nontender, nondistended, + decreased bowel sounds. + burping, little flatus, denies nausea
Extremities: No Edema (2+ DPs b/l)
Data Reviewed
-
Lab Results: Results Reviewed
Medications: Active Meds Reviewed
Chest X-Ray: Report Reviewed and Image Reviewed
ECG: Report Reviewed and Image Reviewed
[2025-06-26] MEDS: FLOMAX 0.4 MG PO (08:39)
[2025-06-26] MEDS: SENOKOT-S 1 TABLET PO ×2 (08:39→20:53)
[2025-06-26] MEDS: PROTONIX 40 MG PO (08:39)
[2025-06-26] MEDS: LOW STRENGTH ASPIRIN 81 MG PO (08:39)
[2025-06-26] MEDS: WELLBUTRIN XL (24 hour extended release) 300 MG PO (08:39)
[2025-06-26] MEDS: MAGNESIUM OXIDE 500 MG PO ×2 (08:39→20:52)
[2025-06-26] MEDS: PLAVIX 75 MG PO (08:40)
[2025-06-26] MEDS: LIDOCAINE 4% PATCH 1 PATCH TOPICAL (08:40)
[2025-06-26] MEDS: NON-FORMULARY ITEM 200 MG PO (08:42)
[2025-06-26] MEDS: BACTROBAN 2% OINTMENT 1 APPLIC NASAL ×2 (08:43→20:52)
--- NOTE | 2025-06-26 09:00 | W.PN.CD ---
Today's Communication / Plan
-
- Holding BB
- AMbulate / ISS
Impression / Plan
-
75 y/o male with CAD with hx stenting, aortic stenosis, hypertension, dyslipidemia, depression, and PAF who is now s/p CABG/AVR. Patient of Dr. Barnes.
Severe and CAD s/p CABG/AVR:
-s/p coronary artery bypass grafting x 2 (In situ ELLSWORTH to LAD, Ao to RSVG to RPDA) and bio-AVR, modified left atrial maze and COLE exclusion, Dr. Carbajal 06/23/25
-extubated, off vasopressors
-post-op EKG and tele SR
-encourage IS
-CT, pacer wire in place
-EF 55% per intra-op report
-cont. ASA, Plavix, statin
- OOB and start ambulation
- Holding Metoprolol.
PAF:
-stable in SR, procedures as above
-s/p Left atrial appendage exclusion [35 mm device]; Modified left atrial maze [encompass clamp, posterior wall lesion set] with Dr. Carbajal on 06/23/2025
-on dilt as OP, BB ordered here- follow telemetry
-amio for post op Afib prevention per CT surgery
-resume OAC when able (on Eliquis as OP)
CP:
-Pleuritic,
-seems c/w pericarditis
-check ECG -D/w CTNP
- On colchicine--D/w CTNP
OH:
-holding agents
-given OH and cp will update a focused echo
HTN:
-monitor post-op
HLD:
-continue statin
Subj:
No active complaints.
Physical Exam
Vital Signs/Labs
Vital Signs
Temp Pulse Resp BP Pulse Ox
98 F 81 16 115/60 99
06/26/25 08:15 06/26/25 08:45 06/26/25 08:15 06/26/25 08:45 06/26/25 08:15
06/25/25 06/26/25 06/27/25
06:59 06:59 06:59
Actual Weight 92 kg 91.9 kg
06/26/25 05:21
06/26/25 05:21
PT 17.2 Sec (11.4-14.6) H 06/23/25 13:23
INR 1.35 06/23/25 13:23
APTT 31.0 Sec (23.4-35.0) 06/23/25 13:23
Magnesium 2.4 mg/dl (1.6-2.3) H 06/26/25 05:21
Physical Exam
Constitutional: No acute distress and Comfortable
EENT: Anicteric and Moist mucous membranes
Cardiovascular: Rhythm & rate is regular and Pedal edema is absent
Respiratory: Respiratory effort normal, Lungs clear to auscul. and Wheeze Absent
GI: Soft, Distention absent, Non tender and Normal bowel sounds
Neuro/Psych: Alert, Oriented and AO x 3
Data Reviewed
-
Date of Service: June 26, 2025
Medical Decision Making: Reviewed Test Results, Test Interpretation and Review of Case with other Provider
EKG: Tracing Personally Visualized and interpreted
Echo: Report Reviewed by me
Labs: Labs Reviewed by me
Old Records: Reviewed
--- NOTE | 2025-06-26 10:25 | PTCARENOTE ---
Pt received AAOx3 in bed. Assist x1 to chair for breakfast, With cardiac rehab pt did develop orthostatic hypotension while standing, R IJ cordis with 10ml/hr KVO, all procedure sites stable, at bedside, both updated to plan of care
--- NOTE | 2025-06-26 12:17 | PTCARENOTE ---
Pt up in the chair for vitals and lunch, When stood to ambulate pt got lighted headed and was sit back down, lines intact and appropriate
[2025-06-26] MEDS: NSS IV (12:55)
[2025-06-26] MEDS: FERRLECIT 110 MG IV (13:01)
--- NOTE | 2025-06-26 16:25 | PTCARENOTE ---
Pt walked to door and back to bed by the end of the walk he became lightheaded and dizzy. pt was put back to bed and recovered, Cordis was then D/C'ed
--- NOTE | 2025-06-26 17:18 | PTCARENOTE ---
Pt up to chair to eat dinner, Post cordis removal site clean dry and intact
[2025-06-26] MEDS: LIPITOR 80 MG PO (17:54)
--- NOTE | 2025-06-26 18:32 | PTCARENOTE ---
Pt walked to bathroom and back to bed, Pt still retaining after void
--- NOTE | 2025-06-26 20:30 | PTCARENOTE ---
Report received from Karina and Cipriano RNs. Walking rounds done. Pt lying in bed, supine. Awake, alert, oriented x 4. Speech clear. Equal strength x 4. Pt on room air. Sats 95-96%. BBS present. Decreased to B bases. Fine rales heard to posterior R
base. CDB and IS encouraged. IS peak 1000 mls. Audible heart tones. Pt in SR. Normotensive BP. For pulse and wound assessments, see flowsheets. Belly soft, nontender. Normoactive bs x 4. Pt voids clear, yellow urine with some difficulty. Hx BPH.
Voided 175 mls clear, yellow urine. Ongoing plan of care.
[2025-06-26] MEDS: REMOVE LIDOCAINE PATCH 1 PATCH REMOVE (20:52)
[2025-06-26] MEDS: LASIX 40 MG IV (22:46)
--- NOTE | 2025-06-26 23:00 | PTCARENOTE ---
Pt assisted to sitting on edge of bed to void in urinal. Pt voided 175 mls clear, yellow urine. After assisting pt back to bed, Pt noted to have CANALES and with upper airway wheezing. Sats remain 95-97% on room air. FANNY Rangel at bedside with pt. Pt
c/o some sternal pain. Flexeril 5 mg po given. Lasix 40 mgi
--- NOTE | 2025-06-26 23:00 | PTCARENOTE ---
Pt assisted to sitting on edge of bed to void in urinal. Pt voided 175 mls clear, yellow urine. After assisting pt back to bed, Pt noted to have CANALES and with upper airway wheezing. Pt also noted increased DO when lying flat in bed. Sats remain
95-97% on room air. FANNY Rangel at bedside with pt. Pt c/o some sternal pain. Flexeril 5 mg po given. Lasix 40 mg IV given per order of PA.
[2025-06-27] VITALS (38 sets, daily range): BP systolic 106–144; BP diastolic 56–84; PULSE 67–85; BMI 29.8
--- NOTE | 2025-06-27 01:00 | PTCARENOTE ---
Condom cath was placed briefly after Lasix IV given. (#30). Condom cath leaked. Pt refused another condom cath stating it was uncomfortable. Pt up to side of bed (sitting) x 2 to void clear, yellow urine. Pt preferred to go into BR to void. VS taken
lying and sitting. Normotensive. (SBP 130-140). Pt helped to standing and escorted to BR. Denies dizziness. Voided 200 mls urine in toilet. Had a small BM. Pt then back to bed. Bladder scanned for 458 mls urine. PA aware. West catheter ordered for
acute urine retention. #16 west placed at 0055 per hospital protocol. 400 mls clear, yellow urine out immediately. Flexeril 5 mg po was given for pain at 2225, along with scheduled Tylenol. Pt encouraged to sleep. Remains in SR. 1L/NC applied for
comfort with CANALES after return from BR. Sats 97-98%. Ongoing plan of care.
[2025-06-27] MEDS: TYLENOL 1000 MG PO ×3 (06:04→22:44)
[2025-06-27 06:23] LABS: Hematocrit 24.7 % (39.0-52.0); Hemoglobin 8.3 g/dL (13.0-18.0); Mean Corp Hgb Conc. 33.6 g/dL (33.0-37.0); Mean Corpuscular Volume 91.8 fL (80.0-94.0); Platelet Count 144 10^3/uL (130-400); Red Cell Dist. Width 14.0 % (11.5-14.5)
--- NOTE | 2025-06-27 06:32 | W.PN.CT ---
Today's Communication / Plan
-
-pod #4
-pt looked notably SOB after just sitting up on the edge of the bed to void, + JVD, wt is up from 191 lbs to 202 lbs, pOx was ok 97% on RA. Gave 40 iv Lasix (BP was 139/73 supine), UO 2150/3025+ in 12/24 hrs
-re-inserted Devries overnight d/t urinary retention
-has been difficult to diurese d/t orthostasis- on Midodrine 10 tid, holding BB and Amio
-nl EF 55-60% (Echo 06/25)
-consider diuresis if BP tolerates
-current meds (ASA, Plavix, Lipitor, Midodrine, Protonix, Flomax, Wellbutrin). Preop was on Eliquis for paf
-encourage IS, OOB
Assessment / Plan
-
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
atrial maze [encompass clamp, posterior wall lesion set] with Dr. Carbajal on 06/23/2025 POD #4
NINA post op: Postop rhythm is now junctional. RV and LV function remain normal. LVEF 55% with no new RWMA. The AVR is well seated, no AI or perivalvular leaks noted. Max AV gradient 13 mmHg, mean is 6 mmHg. Mild central MR. Trace TR. PV
appears normal. LA appendage has been adequately clipped
HLD
PAF on Eliquis
Hypothyroid
Neuropathy
BPH
IBS
CAD s/p REAL
RLS
Acute junctional rhythm
Acute post op pain
Acute post op pulmonary insufficiency/atelectasis
Acute postop blood loss anemia
Acute postop thrombocytopenia
Acute postop hyponatremia
Acute postop orthostasis
Acute postop urinary retention- Devries re-inserted on 06/26
Discussed patient care with: Nursing and Care Team
Subjective
Procedure
s/p surgical aortic valve replacement [Inspiris Resilia 25 mm biological prosthesis], Coronary artery bypass grafting x 2 (In situ ELLSWORTH to LAD, Ao to RSVG to RPDA), Left atrial appendage exclusion [35 mm device] ,Modified left atrial maze
[encompass clamp, posterior wall lesion set] with Dr. Carbajal on 06/23/2025
-
Date of Service: June 26, 2025
Objective Data
-
Lab Results
06/26/25 05:21
06/26/25 05:21
PT 17.2 Sec (11.4-14.6) H 06/23/25 13:23
INR 1.35 06/23/25 13:23
APTT 31.0 Sec (23.4-35.0) 06/23/25 13:23
Vital Signs
Vital Signs
Temp Pulse Resp BP Pulse Ox
98.1 F 77 14 129/75 96
06/26/25 20:40 06/26/25 22:46 06/26/25 20:40 06/26/25 22:46 06/26/25 20:40
CT Intake/Output/Weight
06/26/25 06/26/25 06/27/25
06:59 18:59 06:59
Intake Total 120 / 1040 650 / 650
Output Total 400 / 1800 875 / 1225 350 / 1225
Balance -280 / -760 -225 / -575 -350 / -575
SaO2: 96
Physical Exam
-
General: Awake and AOx3
Cardiovascular: Regular rate & rhythm (+ JVD), No Murmurs and No Rub
Respiratory: Decreased Breath Sounds
Sternum: Stable
Incision: Clean, Dry and Intact
Extremities: Edema +1 and Other
Abdomen: mildly distended, + bowel sounds, + flatus, no nausea or pain
Data Reviewed
-
Lab Results: Results Reviewed
Medications: Active Meds Reviewed
Chest X-Ray: Report Reviewed and Image Reviewed
ECG: Report Reviewed and Image Reviewed
[2025-06-27 06:36] LABS: Blood Urea Nitrogen 18 mg/dl (9-20); Calcium 8.4 mg/dl (8.4-10.2); Carbon Dioxide 33 mmol/L (22-30); Chloride 103 mmol/L (98-107); Estimated Creatinine Clearance 90 ml/min; Glucose 110 mg/dl (70-99); Magnesium 2.4 mg/dl (1.6-2.3); Potassium 4.0 mmol/L (3.5-5.1); Sodium 137 mmol/L (135-145); eGFR > 60.00
--- NOTE | 2025-06-27 06:37 | PTCARENOTE ---
Labs drawn and sent. Orthostatic VS done without midodrine per instruction of PA. Pt did have transient lightheadedness with sitting and standing. Pt weighed on standing scale and helped to chair. VS q 15 min for now. States dizziness has resolved.
Ongoing plan of care. No c/o pain. Room air sat 96%. SR 70's.
[2025-06-27] MEDS: PROTONIX 40 MG PO (08:37)
[2025-06-27] MEDS: BACTROBAN 2% OINTMENT 1 APPLIC NASAL (08:37)
[2025-06-27] MEDS: LOW STRENGTH ASPIRIN 81 MG PO (08:37)
[2025-06-27] MEDS: NON-FORMULARY ITEM 200 MG PO (08:37)
[2025-06-27] MEDS: MAGNESIUM OXIDE 500 MG PO ×2 (08:37→21:03)
[2025-06-27] MEDS: SENOKOT-S 1 TABLET PO ×2 (08:38→21:02)
[2025-06-27] MEDS: WELLBUTRIN XL (24 hour extended release) 300 MG PO (08:38)
[2025-06-27] MEDS: PLAVIX 75 MG PO (08:38)
[2025-06-27] MEDS: FLOMAX 0.4 MG PO (08:38)
[2025-06-27] MEDS: NSS IV (08:41)
[2025-06-27] MEDS: LIDOCAINE 4% PATCH TOPICAL (08:41)
--- NOTE | 2025-06-27 08:45 | PTCARENOTE ---
Patient received from nightclub manager resting oob in chair, AAO X 3, states pain controlled at this time. NSR via cm, SaO2 @ 97% on RA. All procedural sites stable. Devries catheter to gravity. Dr. Carbajal and team to bedside for am rounds. Patient assisted
to ambulate to brock approx 40 feet, tolerated well, c/o mild dizziness upon completion. Patient and at bedside updated to plan of care for the day, in agreement. See work list for full assessment and interventions performed.
--- NOTE | 2025-06-27 12:05 | PTCARENOTE ---
VS obtained, assessment stable. Patient resting comfortably, dozing intermittently. Unit prbc infusing.
[2025-06-27] MEDS: LASIX 40 MG IV (14:10)
[2025-06-27] MEDS: KCL 20 MEQ PO ×2 (14:10→14:11)
--- NOTE | 2025-06-27 16:23 | PTCARENOTE ---
VS obtained, stable. Patient stood, slight lightheadedness, settled back to chair. PA Long updated.
[2025-06-27] MEDS: LIPITOR 80 MG PO (18:20)
--- NOTE | 2025-06-27 20:45 | PTCARENOTE ---
Report received from Karina GOODMAN. Walking rounds done. Pt lying supine in bed. Oriented x 4. Speech clear. Moves all extremities equally x 4. Denies dizziness, lightheadedness. EKG change noted to QRS at 1951. Remains in SR, rate 70-80's.
Normotensive. Denies chest pain, dyspnea. Sats 96-97% on room air. Garret Unger NP notified. BMP drawn and sent. Pt back into SR at ~ 2042. Remains normotensive. Audible heart tones. +2 palpable pulses to B radials, +1 palpable pulses to B DPs.
For wound assessments, see flowsheets. Pt on room air. BBS present. Decreased to B bases. CDB and IS encouraged. Belly soft, nontender. Passing flatus. Normoactive bs x 4. Devries intact, draining clear, yellow urine. Ongoing plan of care.
[2025-06-27] MEDS: REMOVE LIDOCAINE PATCH 1 PATCH REMOVE (21:02)
[2025-06-27 21:06] LABS: Blood Urea Nitrogen 17 mg/dl (9-20); Calcium 8.2 mg/dl (8.4-10.2); Carbon Dioxide 32 mmol/L (22-30); Chloride 102 mmol/L (98-107); Estimated Creatinine Clearance 90 ml/min; Glucose 95 mg/dl (70-99); Magnesium 2.3 mg/dl (1.6-2.3); Potassium 4.1 mmol/L (3.5-5.1); Sodium 136 mmol/L (135-145); eGFR > 60.00
--- NOTE | 2025-06-27 22:50 | PTCARENOTE ---
Pt with EKG change at ~ 2152. EKG done showing R BBB. EKG shown to RADHA Combs. Pt continues to deny CP, dyspnea. Normotensive. O2 sats 67584% on room air.
[2025-06-28] VITALS (18 sets, daily range): BP systolic 112–158; BP diastolic 66–88; PULSE 70–87; O2SAT 99–100; BMI 29.2
--- NOTE | 2025-06-28 00:23 | W.PN.CT ---
Today's Communication / Plan
-
No issues overnight�
Orthostasis � improved with s/p 1 unit of blood, midodrine currently on hold�
In and out of RBBB overnight�
Devries remain for acute urinary retention = will need voiding before DC.�
Cont diuresis on 06/26 (40mg of lasix) 06/27 (40mg of lasix). (Weight trend is 191 to 202 to 198�to 194 (today)
Current meds (ASA, Plavix, Lipitor, Midodrine, Protonix, Flomax, Wellbutrin). Preop was on Eliquis for PAF�
Encourage IS, OOB�
Assessment / Plan
-
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
atrial maze [encompass clamp, posterior wall lesion set] with Dr. Carbajal on 06/23/2025 POD #5
NINA post op: Postop rhythm is now junctional. RV and LV function remain normal. LVEF 55% with no new RWMA. The AVR is well seated, no AI or perivalvular leaks noted. Max AV gradient 13 mmHg, mean is 6 mmHg. Mild central MR. Trace TR. PV
appears normal. LA appendage has been adequately clipped
HLD
PAF on Eliquis
Hypothyroid
Neuropathy
BPH
IBS
CAD s/p REAL
RLS
Acute junctional rhythm
Acute post op pain
Acute post op pulmonary insufficiency/atelectasis
Acute postop blood loss anemia
Acute postop thrombocytopenia
Acute postop hyponatremia
Acute postop orthostasis
Acute postop urinary retention- Devries re-inserted on 06/26
Subjective
Procedure
s/p surgical aortic valve replacement [Inspiris Resilia 25 mm biological prosthesis], Coronary artery bypass grafting x 2 (In situ ELLSWORTH to LAD, Ao to RSVG to RPDA), Left atrial appendage exclusion [35 mm device] ,Modified left atrial maze
[encompass clamp, posterior wall lesion set] with Dr. Carbajal on 06/23/2025
-
Date of Service: June 28, 2025
Objective Data
-
Lab Results
06/27/25 20:33
PT 17.2 Sec (11.4-14.6) H 06/23/25 13:23
INR 1.35 06/23/25 13:23
APTT 31.0 Sec (23.4-35.0) 06/23/25 13:23
Vital Signs
Vital Signs
Temp Pulse Resp BP Pulse Ox
98.8 F 72 15 118/70 96
06/27/25 22:36 06/27/25 23:00 06/27/25 22:36 06/27/25 22:36 06/27/25 22:36
CT Intake/Output/Weight
06/27/25 06/27/25 06/28/25
06:59 18:59 06:59
Intake Total 200 / 850 1210 / 1210
Output Total 2150 / 3025 2710 / 3260 550 / 3260
Balance -1950 / -2175 -1500 / -2049 - / -2049
SaO2: 96
Physical Exam
-
General: Awake
Cardiovascular: Regular rate & rhythm
Respiratory: Clear and Equal
Sternum: Stable
Incision: Clean, Dry and Intact
Extremities: Edema +1
--- NOTE | 2025-06-28 02:50 | PTCARENOTE ---
VS done. BP 124/68. Pt in SR, rate upper 60's. O2 sat on room air is 96%. Pt lying flat in bed, sleeping. No c/o dyspnea, no c/o CP.
[2025-06-28 05:54] LABS: Hematocrit 29.1 % (39.0-52.0); Hemoglobin 9.9 g/dL (13.0-18.0); Mean Corp Hgb Conc. 34.0 g/dL (33.0-37.0); Mean Corpuscular Volume 89.5 fL (80.0-94.0); Platelet Count 176 10^3/uL (130-400); Red Cell Dist. Width 15.0 % (11.5-14.5)
[2025-06-28] MEDS: TYLENOL 1000 MG PO (06:19)
--- NOTE | 2025-06-28 06:27 | PTCARENOTE ---
Labs drawn and sent this am. Pt was given CHG bath and Devries care per protocol. Dressing change done to old CT sites. Small SSG drainage. Sites mostly scabbed x 4. No signs of redness, purulent drainage. Orthostatic VS done. Pt without
dizziness/lightheadedness. Pt helped to standing scale with 2 assist.Pt then walked to window then helped to chair. No dizziness/lightheadedness. States he is feeling well. Pt sitting on 2 pillows per request. No c/o pain.
[2025-06-28] MEDS: WELLBUTRIN XL (24 hour extended release) 300 MG PO (08:16)
[2025-06-28] MEDS: LOW STRENGTH ASPIRIN 81 MG PO (08:16)
[2025-06-28] MEDS: SENOKOT-S 1 TABLET PO (08:16)
[2025-06-28] MEDS: PLAVIX 75 MG PO (08:16)
[2025-06-28] MEDS: PROTONIX 40 MG PO (08:16)
[2025-06-28] MEDS: NON-FORMULARY ITEM 200 MG PO (08:16)
[2025-06-28] MEDS: MAGNESIUM OXIDE 500 MG PO (08:16)
[2025-06-28] MEDS: FLOMAX 0.4 MG PO (08:16)
[2025-06-28] MEDS: LIDOCAINE 4% PATCH TOPICAL (08:17)
--- NOTE | 2025-06-28 08:27 | PTCARENOTE ---
Received pt from plant operator/shift supervisor RN; pt AAOx3 and resting comfortably in chair; NSR RBBB on monitor and VSS: PIV x1 patent; lungs diminished with fine crackles in bases; IS to 1500; positive bowel sounds; Devries catheter draining clear yellow urine;
palpable pulses throughout; no edema noted; all surgical sites C/D/I; see nursing documentation for further details.
[2025-06-28] MEDS: KCL 20 MEQ PO (09:18)
[2025-06-28] MEDS: LASIX 40 MG PO (09:18)
--- NOTE | 2025-06-28 11:19 | W.PN.CD ---
Today's Communication / Plan
-
OOB and ambulate
Likely discharge today
He will f/u with Dr Barnes
Impression / Plan
-
75 y/o male with CAD with hx stenting, aortic stenosis, hypertension, dyslipidemia, depression, and PAF who is now s/p CABG/AVR. Patient of Dr. Barnes.
Severe and CAD s/p CABG/AVR:
-s/p coronary artery bypass grafting x 2 (In situ ELLSWORTH to LAD, Ao to RSVG to RPDA) and bio-AVR, modified left atrial maze and COLE exclusion, Dr. Carbajal 06/23/25
-extubated, off vasopressors
-post-op EKG and tele SR
-encourage IS
-CT, pacer wire in place, removal per CTS
-EF 55% per intra-op report
-cont. ASA, Plavix, statin
- OOB and start ambulation
- Holding Metoprolol.
PAF:
-stable in SR, procedures as above
-s/p Left atrial appendage exclusion [35 mm device]; Modified left atrial maze [encompass clamp, posterior wall lesion set] with Dr. Carbajal on 06/23/2025
-on dilt as OP, BB ordered here- follow telemetry
-amio for post op Afib prevention per CT surgery
-resume OAC when able (on Eliquis as OP)
CP:
-Pleuritic,
-seems c/w pericarditis
-check ECG -D/w CTNP
- On colchicine--D/w CTNP
OH:
-holding agents
-given OH and cp will update a focused echo
HTN:
-monitor post-op
HLD:
-continue statin
Subj:
No active complaints. Anticipating D/C
Physical Exam
Vital Signs/Labs
Vital Signs
Temp Pulse Resp BP Pulse Ox
98.6 F 75 20 131/72 97
06/28/25 08:00 06/28/25 08:14 06/28/25 08:00 06/28/25 09:18 06/28/25 09:04
06/27/25 06/28/25 06/29/25
06:59 06:59 06:59
Actual Weight 198 lb 13.711 oz 194 lb 10.691 oz
06/28/25 05:33
06/27/25 20:33
PT 17.2 Sec (11.4-14.6) H 06/23/25 13:23
INR 1.35 06/23/25 13:23
APTT 31.0 Sec (23.4-35.0) 06/23/25 13:23
Magnesium 2.3 mg/dl (1.6-2.3) 06/27/25 20:33
Physical Exam
Constitutional: No acute distress and Comfortable
EENT: Anicteric
Cardiovascular: Rhythm & rate is regular and Pedal edema is absent
Respiratory: Respiratory effort normal and Lungs clear to auscul.
GI: Soft
Neuro/Psych: Alert and Oriented
Data Reviewed
-
Date of Service: June 28, 2025
Medical Decision Making: Reviewed Test Results
EKG: Tracing Personally Visualized and interpreted (sr)
Echo: Report Reviewed by me
Labs: Labs Reviewed by me
--- NOTE | 2025-06-28 11:40 | W.DCSUMMARY ---
Discharge Summary
Discharge Data
Date of Admission: 06/23/25
Date of Discharge: 06/28/25
-
Pending Results: No
Hospital Course
Primary care physician: Ashvin Tang
Outpatient milk handler: Xander Barnes
Inpatient consultants: [facility] cardiology
Procedures:
1. 06/23/25 Aortic valve replacement with #25 Inspiris valve, CABG x2 (ELLSWORTH-LAD, SVG-RPDA), ELAA #35 clip, modified MAZE with encompass
Primary Diagnosis:
1. recent NSTEMI, 06/01/25
2. severe aortic stenosis
3. 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
Secondary Diagnoses:
1. hyperlipidemia
2. paroxysmal atrial fibrillation, on eliquis
3. hypothyroidism
4. neuropathy
5. BPH
6. IBS
7. restless leg syndrome
8. postop junctional rhythm, resolved
9. postop acute blood loss anemia, req transfusion 1 PRBC on 06/27
10. postop thrombocytopenia, resolved
11. postop orthostasis, resolved
12. postop urinary retention, resolved
HPI: Patient is a 75-year-old male with recent admission to [facility] for small non-STEMI where he was also noted to have severe aortic stenosis. He was discharged in medically stable condition and was seen in follow-up for evaluation for
aortic valve replacement and CABG. After all preop workup was completed he was deemed a suitable candidate to undergo the procedure.
Hospital course: He was brought in electively on 06/23/2025 where he underwent a bioprosthetic aortic valve replacement, CABG x 2 left atrial appendage exclusion and maze by Dr. Alex Carbajal without any perioperative complications. He was
transferred to CVICU per protocol in a junctional rhythm in the 60s. He did not require any inotropic support, but was atrial paced at a slightly higher rate for additional hemodynamic support. He was extubated later that day at 5:30 PM. He
remained stable overnight on postop day 1 pleural chest tubes Devries and A-line were discontinued. Cardene drip was turned on overnight for hypertension and was then weaned off with oral antihypertensive agents. On postop day 2 patient had some
episodes of orthostasis for which amiodarone and beta-shannon were held and he was started on low-dose midodrine 3 times daily. Hemoglobin remained stable at 8.9, follow-up echo demonstrated normal EF with no pericardial effusion. On postop day 3
his orthostatic symptoms are improving blood pressure is stable, but Devries was reinserted for acute retention. On postop day 4 patient received transfusion of 1 unit of packed red blood cells for continued symptomatic orthostasis and anemia with
hemoglobin of 8.3. Patient reported much improvement in his dizziness. On postop day 5 patient reports feeling better, he is ambulatory, hide 2 view chest x-ray demonstrated mild atelectasis with small bilateral effusions. He is discharged to
home with close follow-up with transitional care nurse from [facility] who will see him in a few days. He is to continue Eliquis for his paroxysmal atrial fibrillation and Plavix for vein graft patency as well as prior stents.
Home medication changes: New prescription for oxycodone to take as needed for pain surgical pain, Lasix and potassium supplementation x 5 days for postop volume overload. Patient has been instructed to stop diltiazem, HCTZ and losartan at this time
due to relative hypotension. He is also instructed to stop isosorbide and sublingual nitro due to revascularization. Patient should hold his fish oil until resumed by his doctor.
Discharge Plan
-
Patient Disposition: Home (Routine Discharge)
Discharge Diagnosis/Procedures: tissue aortic valve replacement, CABG x 2, MAZE. left atrial appendage clip (06/23/25)
Condition: Good
Diet: Low Cholesterol and 2 Gram Sodium
Activity: No strenuous activity
Driving Restrictions: Not until seen by your Dr
Bathing Restrictions: OK to Shower
Other Services: Cardiac Rehab
Specialty Instructions: Weigh Daily- Call MD for wt gain/loss 3 lbs overnight/5 lbs in 1 week
Referrals:
CT Transitional Care Nurse [Outside]
Referral Note: The Cardiothoracic Transitional Care Nurse will call you to set up a visit in 1-2 days.
[facility]. Cardiac Rehab [Outside] - 08/09/25 1:00 pm
Referral Note: Cardiac Rehab Orientation appointment is on August 05 at 11 am.
The Cardiac Rehab gym is located on the first floor of the [facility].
Arabella Lehman NP [Specified Professional Personl, Cardiology] - 08/11/25 11:00 am
Ashvin Tang DO [Family Provider, Family Practice]
Alex Carbajal MD [Active, Cardiac Surgery] - 07/26/25 2:30 pm
Prescriptions:
New
acetaminophen 325 mg Tablet
650 mg PO Q6HPRN PRN (Reason: mild pain,headache,temp >101F ) Qty: 0 0RF
sennosides-docusate sodium 8.6-50 mg Tablet
1 tab PO Q12 PRN (Reason: Constipation) Qty: 0 0RF
potassium chloride 10 mEq tablet,ER particles/crystals
10 meq PO DAILY Qty: 5 0RF
furosemide [Lasix] 20 mg tablet
20 mg PO DAILY Qty: 5 0RF
oxycodone 5 mg Tablet
2.5 - 5 mg PO Q6HPRN PRN (Reason: moderate-severe pain unalleviated by Tylenol) Qty: 5 0RF
Continued
desvenlafaxine succinate [Pristiq] 100 MG tablet extended release 24 hr
200 mg PO DAILY
methylphenidate HCl [Concerta] 36 MG tablet extended release 24hr
36 mg PO DAILY
tamsulosin 0.4 MG capsule
0.4 mg PO DAILY
bupropion HCl [Wellbutrin XL] 300 mg Tablet Extended Release 24 Hr
300 mg PO DAILY
atorvastatin 80 mg tablet
80 mg PO QPM
clopidogrel 75 MG tablet
75 mg PO DAILY
Eliquis 5 mg tablet
5 mg PO BID
Discontinued
nitroglycerin 0.4 MG tablet, sublingual
0.4 mg sublingual [id number] PRN (Reason: chest pain) Qty: 25 2RF
diltiazem HCl 180 mg Capsule,Extended Release 24 Hr
180 mg PO DAILY
losartan 50 mg Tablet
50 mg PO BID
isosorbide mononitrate 60 mg Tablet Extended Release 24 Hr
60 mg PO DAILY
hydrochlorothiazide 12.5 mg Capsule
12.5 mg PO DAILY
omega 6-ozb-[id number]-fish oil [Fish Oil] 1,200 (144-216) mg Capsule
1 cap PO DAILY
Discharge Orders:
Discharge Patient (As Directed); Ordered 06/28/25
Ordered By: Gali Henry
Care Plan Goals
Care Plan Goals:
Problem: Readiness for enhanced knowledge related to diagnosis and treatment plan
Goal: Understand your diagnosis and treatment plan needs, including medications if applicable.
Instructions: Know your diagnosis, underlying causes and treatment plan options, including medications if applicable. Consult with your health care team to learn about your diagnosis and treatment plan, including medications if applicable.
Discharge Date and Time
Print Language: SOU[place] AFR[place]
--- NOTE | 2025-06-28 12:54 | PTCARENOTE ---
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
== END 2025-06-28 12:58 | disposition home or self-care (01) | DRG 219 ==
LOC: CVICU 05:29
PROVIDERS: Anesthesiology; Nurse Practitioner Primary Care; ADMITTING PHYSICIAN Thoracic Surgery (Cardiothoracic Vascular Surgery); CONSULT PHYSICIAN Internal Medicine Critical Care Medicine; FAMILY PHYSICIAN Family Medicine
PROC: 021009W Bypass Coronary Artery, One Artery from Aorta with Autologous Venous Tissue, Open Approach (ICD-10-PCS; 2025-06-23)
PROC: 02580ZZ Destruction of Conduction Mechanism, Open Approach (ICD-10-PCS; 2025-06-23)
PROC: B24BZZ4 Ultrasonography of Heart with Aorta, Transesophageal (ICD-10-PCS; 2025-06-23)
PROC: 06BP4ZZ Excision of Right Saphenous Vein, Percutaneous Endoscopic Approach (ICD-10-PCS; 2025-06-23)
PROC: 5A1221Z Performance of Cardiac Output, Continuous (ICD-10-PCS; 2025-06-23)
PROC: 02L70CK Occlusion of Left Atrial Appendage with Extraluminal Device, Open Approach (ICD-10-PCS; 2025-06-23)
PROC: 02100Z9 Bypass Coronary Artery, One Artery from Left Internal Mammary, Open Approach (ICD-10-PCS; 2025-06-23)
PROC: 02RF08Z Replacement of Aortic Valve with Zooplastic Tissue, Open Approach (ICD-10-PCS; 2025-06-23)
PROC: 30233N1 Transfusion of Nonautologous Red Blood Cells into Peripheral Vein, Percutaneous Approach (ICD-10-PCS; 2025-06-27)
DX: I25.10 Atherosclerotic heart disease of native coronary artery without angina pectoris (principal); J95.1 Acute pulmonary insufficiency following thoracic surgery; D62 Acute posthemorrhagic anemia; T82.855A Stenosis of coronary artery stent, initial encounter; J98.11 Atelectasis; E87.1 Hypo-osmolality and hyponatremia; I48.0 Paroxysmal atrial fibrillation; I35.0 Nonrheumatic aortic (valve) stenosis; G62.9 Polyneuropathy, unspecified; I10 Essential (primary) hypertension; Y83.1 Surgical operation with implant of artificial internal device as the cause of abnormal reaction of the patient, or of later complication, without mention of misadventure at the time of the procedure; E03.9 Hypothyroidism, unspecified; E78.00 Pure hypercholesterolemia, unspecified; G25.81 Restless legs syndrome; F32.A Depression, unspecified; F41.9 Anxiety disorder, unspecified; K58.9 Irritable bowel syndrome, unspecified; N40.1 Benign prostatic hyperplasia with lower urinary tract symptoms; D69.59 Other secondary thrombocytopenia; R33.8 Other retention of urine; I95.1 Orthostatic hypotension; R73.9 Hyperglycemia, unspecified; I49.8 Other specified cardiac arrhythmias; E87.70 Fluid overload, unspecified; Y83.2 Surgical operation with anastomosis, bypass or graft as the cause of abnormal reaction of the patient, or of later complication, without mention of misadventure at the time of the procedure; I25.2 Old myocardial infarction; Z52.3 Bone marrow donor; Z79.01 Long term (current) use of anticoagulants; Z79.02 Long term (current) use of antithrombotics/antiplatelets; Z79.899 Other long term (current) drug therapy; Z82.49 Family history of ischemic heart disease and other diseases of the circulatory system
CPT/HCPCS: 36415; 71045; 71046; 75573; 80048; 80053; 81003; 81015; 82248; 82330; 82565; 82805; 82810; 82947; 82962; 83036; 83735; 84132; 84302; 84520; 85014; 85018; 85025; 85027; 85049; 85610; 85730; 86850; 86900; 86901; 86920; 87070; 88305; 88311; 93005; 93308; 93312; 93320; 93325; 94002; J2916; P9016; P9045; Q9967

== ENCOUNTER → 2025-08-24 07:19 | Outpatient (REF) | payer MEDICARE, OTHER, SELFPAY ==
[2025-08-24 09:25] LABS: Hematocrit 39.4 % (39.0-52.0); Hemoglobin 13.0 g/dL (13.0-18.0); Mean Corp Hgb Conc. 33.0 g/dL (33.0-37.0); Mean Corpuscular Volume 90.4 fL (80.0-94.0); Nucleated Red Blood Cells % 0 % (-); Platelet Count 246 10^3/uL (130-400); Red Cell Dist. Width 13.4 % (11.5-14.5)
[2025-08-24 09:46] LABS: ALT (SGPT) 26 U/L (0-50); AST (SGOT) 21 U/L (17-59); Albumin 4.2 g/dl (3.5-5.0); Alkaline Phosphatase 119 U/L (38-126); Blood Urea Nitrogen 19 mg/dl (9-20); Calcium 9.7 mg/dl (8.4-10.2); Carbon Dioxide 27 mmol/L (22-30); Chloride 106 mmol/L (98-107); Glucose 111 mg/dl (70-99); HDL Cholesterol 82 mg/dl; LDL Cholesterol, Calculated 56 mg/dl; Potassium 4.3 mmol/L (3.5-5.1); Sodium 139 mmol/L (135-145); Total Protein 6.9 g/dl (6.3-8.2); Very Low Density Lipoprotein 12 mg/dl (0-30); eGFR > 60.00
== END ==
LOC: REG 07:19
PROVIDERS: ATTENDING PHYSICIAN Student in an Organized Health Care Education/Training Program; FAMILY PHYSICIAN Family Medicine
DX: I25.10 Atherosclerotic heart disease of native coronary artery without angina pectoris (principal)
CPT/HCPCS: 36415; 80053; 80061; 85025

== ENCOUNTER 2025-08-30 10:04 | Outpatient (RCR) | payer MEDICARE, OTHER, SELFPAY | END 2025-08-30 23:59 | disposition home or self-care (01) | LOC: CRHB 10:04 | PROVIDERS: ATTENDING PHYSICIAN Student in an Organized Health Care Education/Training Program | DX: Z95.1 Presence of aortocoronary bypass graft (principal); Z95.4 Presence of other heart-valve replacement | CPT/HCPCS: G0422; G0423 ==

== ENCOUNTER 2025-09-13 09:09 | Outpatient (RCR) | payer MEDICARE, OTHER, SELFPAY | END 2025-09-13 23:59 | disposition home or self-care (01) | LOC: CRHB 09:09 | PROVIDERS: ATTENDING PHYSICIAN Student in an Organized Health Care Education/Training Program | DX: Z95.1 Presence of aortocoronary bypass graft (principal); Z95.4 Presence of other heart-valve replacement | CPT/HCPCS: G0422; G0423 ==

== ENCOUNTER 2025-10-15 09:46 | Outpatient (RCR) | payer MEDICARE, OTHER, SELFPAY | END 2025-10-19 15:48 | disposition home or self-care (01) | LOC: CRHB 09:46 | PROVIDERS: ATTENDING PHYSICIAN Student in an Organized Health Care Education/Training Program | DX: Z95.1 Presence of aortocoronary bypass graft (principal); I25.10 Atherosclerotic heart disease of native coronary artery without angina pectoris (principal); Z95.4 Presence of other heart-valve replacement; I25.2 Old myocardial infarction | CPT/HCPCS: G0422; G0423 ==

== ENCOUNTER → 2025-11-26 07:15 | Outpatient (REF) | payer MEDICARE, OTHER, SELFPAY | LOC: RAD 07:15 | PROVIDERS: ATTENDING PHYSICIAN Surgery Vascular Surgery; FAMILY PHYSICIAN Internal Medicine | DX: I65.22 Occlusion and stenosis of left carotid artery (principal) | CPT/HCPCS: 93880 ==